=== PATIENT | female | born 1940 | race Asian ===

== ENCOUNTER → 2021-07-13 | Outpatient (CLI) | payer MEDICARE, MEDICAID, SELFPAY ==
[2021-07-13 16:49] LABS: Bacteria 0 SEEN /hpf (None Seen); Mucous, Urine 0 SEEN /hpf (<or=2+); Red Blood Cells-Urine 0 SEEN /hpf (0-5); Squamous Epithelial Cells - UA 0 SEEN /hpf (5-10); White Blood Cells 0 SEEN /hpf (0-5)
[2021-07-13 17:41] LABS: Color, Urine Straw (Yellow); Glucose, Dipstick Normal (Normal); Ketone-Dipstick Negative (Negative); Leukocyte Esterase-Dipstick Negative /ul (Negative); Nitrite-Dipstick Negative (Negative); Occult Blood-Urine 10 /ul (Negative); Protein-Dipstick Negative (Negative); Urine Bilirubin Dipstick Negative (Negative); Urine Clarity Clear (Clear); Urine Urobilinogen Normal (Normal)
[2021-07-13 17:43] LABS: Absolute Lymphocyte Count 1.82 X10^3/uL (0.83-4.51); Absolute Neutrophil Count 4.1 X10^3/uL (2.0-7.7); Basophil# 0.02 X10^3/uL; Basophil% 0.3 % (0-1); Eosinophil# 0.09 X10^3/uL; Eosinophils% 1.4 % (0-5); Hematocrit 36.5 % (37-47); Hemoglobin 11.5 g/dL (12.0-15.0); Lymphocyte # 1.82 X10^3/ul (0.83-4.51); Mean Corp Hgb Conc 31.5 g/dL (32-36); Mean Corpuscular Hgb 29.7 pg (27.0-32.0); Mean Corpuscular Volume 94.3 fL (81-99); Mean Platelet Vol. 10.3 fl (6.2-12.0); Monocyte# 0.48 X10^3/uL; Monocyte% 7.4 % (0-10); NRBC Flagged by Analyzer 0 % (0-5); Neutrophil # 4.08 X10^3/uL (2.7-7.7); Neutrophil % 62.6 % (47-70); Platelet Count 231 K/mm3 (150-450); RBC Distribution Width CV 13.8 % (11.6-14.6); RBC Distribution Width SD 47.4 fl (35.1-43.9); Red Blood Count 3.87 M/mm3 (4.2-5.4); White Blood Count 6.5 K/mm3 (4.4-11.0)
[2021-07-13 18:09] LABS: Hemoglobin A1c 5.7 % (3.8-5.6)
[2021-07-13 18:10] LABS: Creatinine, Urine (random) < 13.00 mg/dL (NO RANGE EST.); Microalbumin,Random Urine 7.7 mg/L (NO RANGE EST.)
[2021-07-13 18:15] LABS: ALB/GLOB Ratio 1.1 RATIO (0.9-2.4); AST(SGOT) 21 U/L (15-37); Alanine Aminotransfer ALT/SGPT 25 U/L (13-56); Albumin, Serum 3.7 g/dL (3.2-5.0); Alkaline Phosphatase 65 U/L (45-117); Anion Gap 6 (5-15); BUN 15 mg/dL (7-18); BUN/Creat Ratio 20.9 RATIO (10-20); CPK Total, Creatine Kinase 104 U/L (26-192); Calcium,Total 9.3 mg/dL (8.5-10.1); Chloride 109 mmol/L (98-107); Cholesterol 186 mg/dL (200); Creatinine, Serum 0.72 mg/dL (0.55-1.02); EST Glomerular Filtration Rate 83 mL/min (>60); Est Glom Filt Rate - Afr Amer 100 mL/min (>60); Ferritin 42 ng/mL (8-252); Globulin 3.5 g/dL (2.2-4.2); Glucose 101 mg/dL (74-106); High Density Lipoprotein 65 mg/dL; Magnesium 2.1 mg/dL (1.6-2.6); Potassium 4.2 mmol/L (3.5-5.1); Protein, Total 7.2 g/dL (6.4-8.2); Sodium Level 140 mmol/L (136-145); Triglycerides 168 mg/dL; Very Low Density Lipoprotein 34 mg/dL (5-40)
== END | disposition home or self-care (01) ==
LOC: MFPLAB 16:46
PROVIDERS: Visit Provider Family Medicine
DX: E11.9 Type 2 diabetes mellitus without complications (principal); R25.2 Cramp and spasm
CPT/HCPCS: 36415; 80053; 80061; 81001; 82043; 82550; 82570; 82728; 83036; 83735; 85025

== ENCOUNTER → 2021-08-10 | Outpatient (CLI) | payer MEDICARE, SELFPAY ==
--- NOTE | 2021-08-10 17:11 | RAD_ITS ---
STUDY: XR Knee 3 Views 08/11/2021 3:22 PM REASON FOR EXAM: Female, 81 years old. PAIN TECHNIQUE: XR Knee 3 Views LEFT COMPARISON: None FINDINGS: Normal visualized distal femur. Normal visualized proximal tibia and fibula. Normal proximal tibiofibular articulation. There is mild degenerative arthrosis of the medial femorotibial compartment. There is mild degenerative arthrosis of the lateral femorotibial compartment. There is mild degenerative arthrosis of the patellofemoral articulation. The soft tissue structures are unremarkable. RAD/Knee 3 Views IMPRESSION: Degenerative arthrosis. Electronically Signed: Juventino Almonte MD at 15:23 EDT ,
--- NOTE | 2021-08-10 17:11 | RAD_ITS ---
STUDY: XR Knee 3 Views 08/11/2021 3:23 PM REASON FOR EXAM: Female, 81 years old. PAIN TECHNIQUE: XR Knee 3 Views RIGHT COMPARISON: None FINDINGS: Normal visualized distal femur. Normal visualized proximal tibia and fibula. Normal proximal tibiofibular articulation. Normal medial femorotibial compartment. Normal lateral femorotibial compartment. Normal patellofemoral articulation. The soft tissue structures are unremarkable. RAD/Knee 3 Views IMPRESSION: There are no acute findings. Electronically Signed: Juventino Almonte MD at 15:23 EDT Reading Location ID and State: [facility] / [place] , Service support ,
--- NOTE | 2021-08-10 17:11 | RAD_ITS ---
STUDY: XR Shoulder Min 2 Views REASON FOR EXAM: Female, 81 years old. PAIN TECHNIQUE: XR Shoulder Min 2 Views RIGHT COMPARISON: None. FINDINGS: Normal glenohumeral articulation. There is degenerative arthrosis of the acromioclavicular joint without inferior osseous spur formation. Normal acromion. Normal humeral head and visualized proximal humerus. The soft tissue structures are unremarkable. Normal visualized pulmonary apex. RAD/Shoulder min 2 Views IMPRESSION: There are no acute findings of the shoulder. Electronically Signed: Juventino Almonte MD at 19:35 EDT Reading Location ID and State: [facility] / [place] , Service support ,
--- NOTE | 2021-08-10 17:15 | RAD_ITS ---
STUDY: XR Shoulder Min 2 Views REASON FOR EXAM: Female, 81 years old. PAIN TECHNIQUE: XR Shoulder Min 2 Views LEFT COMPARISON: None. FINDINGS: Normal glenohumeral articulation. Normal acromioclavicular joint. Normal acromion. Normal humeral head and visualized proximal humerus. The soft tissue structures are unremarkable. Normal visualized pulmonary apex. RAD/Shoulder min 2 Views IMPRESSION: There are no acute findings of the shoulder. Electronically Signed: Juventino Almonte MD at 19:38 EDT ,
== END | disposition home or self-care (01) ==
PROVIDERS: PCP Family Medicine; Referring Provider Family Medicine; Visit Provider Family Medicine
DX: M25.519 Pain in unspecified shoulder (principal); M25.569 Pain in unspecified knee
CPT/HCPCS: 73030; 73562

== ENCOUNTER 2021-09-06 19:28 | Inpatient (IN) | payer MEDICARE, MEDICAID, SELFPAY ==
[2021-09-06 19:29] VITALS: BP 198/79; PULSE 80; RESP 18; TEMP 36.8; O2SAT 100; BMI 29.7
--- NOTE | 2021-09-06 19:34 | EKG12_ITS ---
Test Reason : cp Blood Pressure : / mmHG Vent. Rate : 075 BPM Atrial Rate : 075 BPM P-R Int : 154 ms QRS Dur : 082 ms QT Int : 384 ms P-R-T Axes : 049 -17 130 degrees QTc Int : 428 ms Normal sinus rhythm Moderate voltage criteria for LVH, may be normal variant ( R in aVL , [place] product ) Inferior infarct , age undetermined, cannot be excluded Marked ST abnormality, possible lateral subendocardial injury Abnormal ECG Confirmed by BELINDA IRIZARRY, ALISON ([id number]), publication editor SHELLY DONNELLY ([id number]) on 09/09/2021 9:35:56 AM Referred By: Falguni Confirmed By:ALISON TREVINO MD
--- NOTE | 2021-09-06 19:45 | RAD_ITS ---
STUDY: X-RAY CHEST REASON FOR EXAM: Female, 81 years old. chest pain TECHNIQUE: XR Chest 1 View COMPARISON: Prior comparison studies are not available for review at this time. FINDINGS: There are bilateral pleural effusions. There are bilateral infiltrates. Normal size heart. Normal mediastinum and balwinder. Normal visualized pulmonary arteries. There is atherosclerotic calcification of the aortic arch with tortuosity. There are diffuse degenerative changes of the visualized thoracic spine. There is degenerative osteoarthritis of the bilateral shoulders. There is no demonstrated abnormality of the visualized soft tissue structures of the upper abdomen. RAD/Chest 1 View (Portable) IMPRESSION: There are bilateral pleural effusions. There are bilateral infiltrates. Electronically Signed: Juventino Almonte MD at 20:03 EDT ,
[2021-09-06] MEDS: Aspirin 81 MG TAB.CHEW 324 MG PO (19:58)
[2021-09-06] MEDS: Heparin Injection (Vial) 5,000 UNIT/ML VIAL 4000 UNIT IV (19:59)
[2021-09-06 20:00] LABS: Prothrombin Time (Protime)PT. 12.5 SECONDS (11.7-14.9)
[2021-09-06 20:01] LABS: Partial Thromboplast Time 27.9 Seconds (24.1-36.2)
[2021-09-06 20:05] LABS: Troponin-I HS 6975 pg/mL (3.0-54.0)
--- NOTE | 2021-09-06 20:08 | ED.RN ---
DR WILKES NOTIFIED OF CRITICAL TROPONIN LEVEL- [id number]
[2021-09-06] MEDS: HEPARIN/D5w 25,000 UNITS 25,000 UNITS/250 ML IV.SOLN. 8 UNITS CONT INF (20:17)
[2021-09-06 20:21] VITALS: BP 197/74; PULSE 71; RESP 17; O2SAT 100
--- NOTE | 2021-09-06 20:51 | PCM.HP.STD ---
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 Her chest pain started when patient got up to urinate. Her chest pain radiated to his left where he had numbness. Associated with her symptom was nausea, vomiting, dizziness and shortness of breath. Also she had diaphoresis. Her chest pain was excruciating to the point that she has to sit down. She denies any aggravating ameliorating factors to the pain. On the day of presentation patient went to her PCPs office where EKG was abnormal and high sensitivity troponin was in the 6000. Patient was sent to the emergency department. [facility] Medical History (Updated 09/07/21 @ 06:[address] Bob Arcos MD) Diabetes High cholesterol HTN (hypertension) Medical History no medical history no medical history Home Medications atenolol 50 mg tablet 50 mg PO DAILY 09/06/21 [History Last Taken Unknown] lisinopril 5 mg tablet 5 mg PO DAILY 09/06/21 [History Last Taken Unknown] metformin 500 mg tablet 500 mg PO DAILY 09/06/21 [History Last Taken Unknown] rosuvastatin 5 mg tablet 5 mg PO DAILY 09/06/21 [History Last Taken Unknown] Allergy/AdvReac Type Severity Reaction Status Date / Time ibuprofen Allergy Vomiting Verified 09/06/21 19:32 Family History Other Kidney disease Surgical History History of cataract surgery Social History Smoking Status: Never smoker ROS ROS Narrative Pertinent positives and pertinent negatives as noted in HPI. All other systems were reviewed and are negative. Vital Signs Vital Signs Vital Signs: 09/06/21 19:29 09/06/21 19:33 09/06/21 20:21 Temperature 98.3 F Temperature Source Temporal Pulse Rate 80 71 Respiratory Rate 18 17 Respiratory Effort Normal Non-Labored Blood Pressure 198/79 H 197/74 H Blood Pressure Mean 118 115 Pulse Ox 100 100 Oxygen Delivery Method Room Air Room Air Weight Weight: 64.6 kg Body Mass Index (BMI) 29.7 Physical Exam Narrative Physical exam: General: Well-nourished, well-developed. Head: Normocephalic, atraumatic, no tenderness Eyes: Vision is grossly intact. EOMI ENT, no trauma, moist mucous membranes, no rhinorrhea Neck: Nontender, full range of motion, no spinal tenderness CVS: Regular rate and rhythm. S1-S2 present. No murmur, gallop or rub. Respiratory : clear to auscultation bilaterally, chest wall nontender, no wheezing Abdomen: Soft, nontender, nondistended, normal bowel sounds, no masses : Deferred Back: Nontender, no CVA tenderness, no midline spinal tenderness, deformities, step-offs Extremities: Nontender full range of motion, no trauma Skin: Normal color, no trauma, abrasions Neuro: Alert, oriented, cranial nerves II through XII grossly intact. Psychiatry: Normal mood. Normal affect. Not depressed. Not anxious. Results Lab / Micro Data Result Diagrams: 09/07/21 04:29 09/07/21 04:29 Labs: Laboratory Results - last 24 hr 09/06/21 19:32: PT 12.5, INR 1.0, APTT 27.9 09/06/21 19:32: Troponin I High Sens 6975 H* Radiology Impression Chest X-Ray 09/06/21 19:45 IMPRESSION: There are bilateral pleural effusions. There are bilateral infiltrates. Electronically Signed: Juventino Almonte MD at 20:03 EDT Reading Location ID and State: [facility] / [place] , Service support , Assessment & Plan Assessment/Plan (1) Non-ST elevation [place] (NSTEMI): (2) Hypertensive urgency: (3) Diabetes: PLAN: Plan Non-ST elevation KS Place on a monitored bed at progressive care unit Outpatient EKG was visualized and independently interpreted. T wave inversion in multiple leads. EKG on presentation was visualized and independently interpreted. EKG with T wave inversions and ST depressions in multiple leads. High sensitivity troponin outpatient was 6929. Repeat 6975. Trend. Actual CXR image was independently visualized. No acute cardiopulmonary process was noted. Cardiology consult. ASA 81 mg p.o. daily ordered We will check lipid panel. Cardiology consult Hypertensive urgency Her blood pressure was severely elevated at the emergency department. Home atenolol and lisinopril continued.. Labetalol ordered. Trend blood pressure and adjust blood pressure medication especially. Diabetes mellitus Blood glucose slightly low at 72 on presentation. Reportedly patient had no eating. Accu-Chek every 4 hours ordered. Hold home metformin. Diabetic diet. N.p.o. after midnight. With blood glucose still soft patient was started on D5 half-normal saline Anemia Chronic Trend CBC. DVT prophylaxis not indicated since patient still on heparin drip Charges/Coding Visit Charges Inpatient E&M: 03216 Init Hosp L3
[2021-09-06 21:11] VITALS: BP 190/105
--- NOTE | 2021-09-06 21:16 | ED.VIS.CHEST ---
HPI History of Present Illness Chief Complaint: Chest Pain Informant: patient and spouse/S.O. Onset/Context/Timing Onset: Today Narrative Narrative: Presents after referred by PCP with outpatient work-up positive for NSTEMI. History of hypertension, diabetes, hyperlipidemia awakened 430 using the restroom she developed sudden chest pressure left arm numbness and diaphoresis. Symptoms lasted for half hour. Has not returned. No cardiac history. No history of heart cath. EKG presented by PCP with T wave inversions lateral extreme lateral leads with no old for comparison. Troponin returned over 6900. She remained symptom-free on arrival. Denies any tobacco history. Denies any PE risk factors. States denies any cough symptoms prior was doing well. Prior Similar Symptoms: No CVD Risk Factors: Positive for Hypertension, Diabetes and Hypercholesterolemia [facility] Medical History Diabetes High cholesterol HTN (hypertension) Home Medications atenolol 50 mg tablet 50 mg PO DAILY 09/06/21 [History Last Taken Unknown] lisinopril 5 mg tablet 5 mg PO DAILY 09/06/21 [History Last Taken Unknown] metformin 500 mg tablet 500 mg PO DAILY 09/06/21 [History Last Taken Unknown] rosuvastatin 5 mg tablet 5 mg PO DAILY 09/06/21 [History Last Taken Unknown] Allergy/AdvReac Type Severity Reaction Status Date / Time ibuprofen Allergy Vomiting Verified 09/06/21 19:32 Family History Other Kidney disease Surgical History History of cataract surgery Social History Smoking Status: Never smoker ROS ROS ED Constitutional Constitutional ED: Denies chills, fever(s) or sweats Eyes Eyes: Denies change in vision ENT ENT ED: Denies dysphagia or sore throat Cardiovascular Cardiovascular: Reports chest pain; Denies leg edema, palpitations or racing heartbeat Respiratory/Chest Respiratory/Chest: Denies cough, dyspnea or dyspnea on exertion Gastrointestinal Gastrointestinal: Denies abdominal pain, diarrhea, nausea or vomiting Genitourinary Genitourinary ED: Denies dysuria, hematuria or urinary frequency Musculoskeletal Musculoskeletal: Denies back pain, extremity pain or neck pain Integumentary Denies rash or wounds Neurologic Neurologic: Denies headache(s), paresthesias or weakness EXAM Physical Exam Const Vital Signs: 09/06/21 19:29 09/06/21 19:33 09/06/21 20:21 Temperature 98.3 F Temperature Source Temporal Pulse Rate 80 71 Respiratory Rate 18 17 Respiratory Effort Normal Non-Labored Blood Pressure 198/79 H 197/74 H Blood Pressure Mean 118 115 Pulse Ox 100 100 Oxygen Delivery Method Room Air Room Air Positive well nourished and well developed General Appearance ED: well developed and NAD HEENT Reports moist mucous membranes normocephalic and atraumatic Eyes PERRL, EOMs intact bilaterally and conjunctivae normal General Eye ED: Yes normal appearance of both eyes Neck no lymphadenopathy and supple General: Negative for tenderness Chest Wall Chest: Negative for tenderness Resp normal respiratory effort and normal air movement Effort and Inspection: symmetric chest movement; Negative for respiratory distress Cardio regular rate, regular rhythm and no murmurs Peripheral Pulses: pulses 2+ throughout GI normal to inspection, nondistended, normoactive bowel sounds and non-tender Palpation: Negative for guarding or rebound tenderness present Back/Spine no CVA tenderness and no thoracic nor lumbar tenderness Extremity normal to inspection General Extremety ED: Negative for edema or tenderness General Extremity: Negative for edema Neuro oriented x3 and no sensory deficits noted Sensorium / Orientation: awake and alert Skin no rashes or lesions noted and no wounds Heart Score History: Moderately Suspicious ECG: Nonspecific Repolarization Age: >/= 65 years Risk Factors: >/= 3 Risk Factors or History of CAD Troponin: >/=3 x Normal Limit Score: 8 MDM MDM MDM Narrative Medical decision making narrative: Patient nontoxic, currently asymptomatic. NSTEMI from labs. Repeat EKG noted normalization of T waves in V4 V5. There is ST depressions on extreme lateral leads with no elevations. Rechecked reported 6975. I spoke with on-call electric refrigerator servicer Dr. Phillip, recommended aspirin along with heparin drip. We will hold on Plavix or Brilinta at this time due to patient's age for potential multivessel disease. Chest x-ray reviewed by myself read by radiology for insertion bilateral pleural effusions. Also reported bilateral infiltrates however patient denies any cough symptoms for concerns of any clinical pneumonia. Patient family updated. She will be kept n.p.o. for discussion for cardiac cath tomorrow. I spoke with hospitalist, Dr. Arcos for admission to PCU. Lab Data Attestation: I reviewed the patient's lab results. Labs: Laboratory Results - last 24 hr 09/06/21 09/06/21 19:32 19:32 PT 12.5 INR 1.0 APTT 27.9 Troponin I High Sens 6975 H* Radiography Diagnostic Testing: Clinical Impression(s) from Imaging Studies Chest X-Ray 09/06/21 19:45 IMPRESSION: There are bilateral pleural effusions. There are bilateral infiltrates. Electronically Signed: Juventino Almonte MD at 20:03 EDT , EKG Initial EKG: Attestation: I personally reviewed and interpreted this EKG as follows: Comments: Sinus rate of 78, T wave inversion V6, 1, aVL. There is ST depressions 1 and aVL there is no elevations. Early repull in leads III nonspecific. Critical Care Time Critical Care Time: Yes Critical care time (excluding procedures): 30-74 minutes, Discussing w/Patient &/or Family/Supercharger Mechanic, Discussing w/Consultants, Arranging Admission or Transfer, Performing Direct Patient Care at Bedside and - (31 minutes) Discharge Plan Dx/Rx/DC Orders Clinical Impression: Non-ST elevation [place] (NSTEMI), Chest pain Disposition Disposition: Acute Care [facility] Discharge Date/Time: 09/06/21 21:25
[2021-09-06 21:23] VITALS: BP 190/105; PULSE 71; RESP 17; TEMP 36.8; O2SAT 100
[2021-09-06 21:32] VITALS: BP 188/81; PULSE 80; RESP 18; TEMP 36.8; O2SAT 99; BMI 28.8
--- NOTE | 2021-09-06 22:06 | EKG12_ITS ---
Test Reason : Blood Pressure : / mmHG Vent. Rate : 083 BPM Atrial Rate : 083 BPM P-R Int : 158 ms QRS Dur : 084 ms QT Int : 376 ms P-R-T Axes : 050 -14 135 degrees QTc Int : 441 ms Normal sinus rhythm Left ventricular hypertrophy with repolarization abnormality ( R in aVL , [place] product ) Inferior infarct , age undetermined Poor R wave progression Abnormal ECG Confirmed by BELINDA IRIZARRY, ALISON ([id number]), research editor SHELLY DONNELLY ([id number]) on 09/08/2021 9:51:23 AM Referred By: Confirmed By:ALISON TREVINO MD
[2021-09-06] MEDS: HEPARIN/D5w 25,000 UNITS 25,000 UNITS/250 ML IV.SOLN. 10 UNITS CONT INF (22:27)
[2021-09-06 23:06] LABS: Troponin-I HS 6654 pg/mL (3.0-54.0)
[2021-09-06] MEDS: 0.9% Saline Lock 10 ML Syringe IV (23:15)
[2021-09-06] MEDS: Atorvastatin Calcium 40 MG Tablet PO (23:15)
[2021-09-06] MEDS: Labetalol (Prefilled) 20 MG/4 ML 10 MG IV (23:15)
[2021-09-06 23:30] VITALS: PULSE 80
[2021-09-06 23:40] LABS: Bedside Glucose 101 mg/dL (74-106)
[2021-09-07] VITALS (29 sets, daily range): BP systolic 115–183; BP diastolic 45–75; PULSE 57–79; RESP 12–22; TEMP 36.2–36.9; O2SAT 96–100; BMI 28.8
[2021-09-07 02:39] LABS: Troponin-I HS 5718 pg/mL (3.0-54.0)
[2021-09-07 04:21] LABS: Bedside Glucose 84 mg/dL (74-106)
[2021-09-07 04:48] LABS: Absolute Lymphocyte Count 2.49 X10^3/uL (0.83-4.51); Absolute Neutrophil Count 3.1 X10^3/uL (2.0-7.7); Basophil# 0.02 X10^3/uL; Basophil% 0.3 % (0-1); Eosinophil# 0.09 X10^3/uL; Eosinophils% 1.5 % (0-5); Hematocrit 32.6 % (37-47); Hemoglobin 10.6 g/dL (12.0-15.0); Lymphocyte # 2.49 X10^3/ul (0.83-4.51); Lymphocyte % 40.4 % (19-41); Mean Corp Hgb Conc 32.5 g/dL (32-36); Mean Corpuscular Hgb 30.2 pg (27.0-32.0); Mean Corpuscular Volume 92.9 fL (81-99); Mean Platelet Vol. 10.3 fl (6.2-12.0); Monocyte# 0.46 X10^3/uL; Monocyte% 7.5 % (0-10); NRBC Flagged by Analyzer 0 % (0-5); Neutrophil # 3.09 X10^3/uL (2.7-7.7); Neutrophil % 50.1 % (47-70); Platelet Count 188 K/mm3 (150-450); RBC Distribution Width CV 13.2 % (11.6-14.6); RBC Distribution Width SD 44.7 fl (35.1-43.9); Red Blood Count 3.51 M/mm3 (4.2-5.4); White Blood Count 6.2 K/mm3 (4.4-11.0)
[2021-09-07 05:07] LABS: Partial Thromboplast Time 186.5 Seconds (24.1-36.2)
[2021-09-07] MEDS: 0.9% Saline Lock 10 ML Syringe IV ×2 (05:16→21:09)
[2021-09-07] MEDS: Dext 5%-0.45% NS 1,000 ML 75 ML IV (05:16)
[2021-09-07 05:20] LABS: Anion Gap 6 (5-15); BUN 12 mg/dL (7-18); BUN/Creat Ratio 16.5 RATIO (10-20); Calcium,Total 8.8 mg/dL (8.5-10.1); Chloride 111 mmol/L (98-107); Cholesterol 123 mg/dL (200); Creatinine, Serum 0.73 mg/dL (0.55-1.02); EST Glomerular Filtration Rate 81 mL/min (>60); Est Glom Filt Rate - Afr Amer 98 mL/min (>60); Estimated Creatinine Clearance 42.12 ml/min; Glucose 94 mg/dL (74-106); High Density Lipoprotein 70 mg/dL; Potassium 3.6 mmol/L (3.5-5.1); Sodium Level 142 mmol/L (136-145); Triglycerides 54 mg/dL; Very Low Density Lipoprotein 11 mg/dL (5-40)
--- NOTE | 2021-09-07 07:52 | CON.PCM.CA_ITS ---
Assessment & Plan Assessment/Plan (1) Non-ST elevation WI (NSTEMI): PLAN: The patient presents with an acute non-ST segment elevation WI. At the moment she appears without ongoing acute symptoms. Her cardiac enzymes were positive. Her ECG did demonstrate dynamic T wave changes especially in the lateral distribution. She has been recommended for continued monitoring, medical therapy, and further evaluation with diagnostic cardiac catheterization. The cardiac catheterization procedure and risk were discussed with the patient. She was agreeable to this approach. (2) High cholesterol: PLAN: She will need to continue risk factor evaluation care as deemed appropriate. (3) HTN (hypertension): PLAN: Her blood pressure will need to be followed with adjustment of her medications as deemed appropriate. (4) Diabetes: PLAN: She will continue evaluation care per internal medicine. Addt'l Comments The patient's case has been discussed and reviewed with the patient and previously with Dr. Agosto from the [facility] emergency department staff. This note was generated using a voice recognition system and there may be incorrect words, spelling or punctuation that were not noted when reviewing the office note prior to saving. HPI Consult Data Date of Consult: 09/07/21 HPI Narrative HPI Narrative: JORDIN SPANN, is a 81 year old female who presents cardiovascular consultation based upon concerns of an acute non-ST segment elevation WI superimposed upon a history of hyperlipidemia, hypertension, and diabetes mellitus. To the best of her knowledge she has no previously defined cardiac disease. She notes yesterday morning while in the bathroom she did not feel well. She appears to describe chest discomfort over her left precordium radiating to her left upper extremity with associated symptoms of nausea and diaphoresis. She states she sat on the floor for approximately 45 minutes before she felt she was able to get up. She then rested in bed for approximately an hour. She notes later on she had recurrent symptoms. During this time she also felt somewhat dizzy on and off. She presented to her primary care physician. She had laboratory studies performed which were pending at the time. An ECG was performed that demonstrated findings compatible with sinus rhythm with left atrial enlargement with left ventricular hypertrophy with ST and T wave changes potentially compatible with repolarization as well as myocardial ischemia in the lateral distribution. Subsequently her high-sensitivity troponin I level was reported as positive. She was then instructed to report to the emergency department. There repeat cardiac enzyme levels were positive. A repeat ECG demonstrated similar type findings with exception of the previous lateral T wave changes appearing to have normalized. She was subsequently placed in the PCU for further evaluation and care. She states she has been resting comfortably. She has denied recurrent discomfort. She has had follow-up cardiac enzymes which of decreased. She had a follow-up ECG that demonstrated similar type findings to her emergency department ECG. She has been treated with medical therapy with aspirin and IV heparin. She has been referred for cardiovascular consultation for consideration for diagnostic cardiac catheterization. [facility] Medical History (Updated 09/07/21 @ 07:[address] Dm Phillip MD) Diabetes High cholesterol HTN (hypertension) Medical History no medical history Home Medications atenolol 50 mg tablet 50 mg PO DAILY 09/06/21 [History Last Taken Unknown] lisinopril 5 mg tablet 5 mg PO DAILY 09/06/21 [History Last Taken Unknown] metformin 500 mg tablet 500 mg PO DAILY 09/06/21 [History Last Taken Unknown] rosuvastatin 5 mg tablet 5 mg PO DAILY 09/06/21 [History Last Taken Unknown] Allergy/AdvReac Type Severity Reaction Status Date / Time ibuprofen Allergy Vomiting Verified 09/06/21 19:32 Family History Other Kidney disease Surgical History History of cataract surgery Social History Smoking Status: Never smoker ROS Constitutional Constitutional: Reports as per HPI Eyes Eyes: Reports as per HPI ENT HEENT: Reports as per HPI Cardiovascular Cardiovascular: Reports chest pain, chest pain at rest, diaphoresis, dizziness, dyspnea and nausea Respiratory/Chest Respiratory/Chest: Reports dyspnea Gastrointestinal Gastrointestinal: Reports nausea Genitourinary Genitourinary: Reports as per HPI Musculoskeletal Musculoskeletal: Reports as per HPI Integumentary Integumentary: Reports as per HPI Neurologic Neurologic: Reports as per HPI Psychiatric Psychiatric: Reports as per HPI Physical Exam Const alert, oriented x3 and no apparent distress HEENT normocephalic, head/scalp atraumatic and hearing grossly normal bilaterally Eyes PERRL, EOMs intact bilaterally and conjunctivae normal Neck full ROM, supple and no JVD Carotids: normal carotid upstroke Resp normal respiratory effort and clear to auscultation bilaterally Cardio regular rate, regular rhythm, S1 normal heart sound and S2 normal heart sound GI normal to inspection, nondistended, normoactive bowel sounds Extremity no pedal edema Skin no rashes or lesions noted Psych mental status grossly normal Risk Stratification Risk Stratification Applicable: Yes Age >/= 65: Yes >/= 3 CAD Risk Factors (HTN, HLD, DM, family hx of CAD, or current smoker): Yes Aspirin Use in the Past 7 Days: No Severe Angina (>/= episodes in 24 hours): Yes EKG ST Changes >/= 0.5mm: Yes Positive Cardiac Marker: Yes JOSE Risk Stratification Score: 5 JOSE % Risk: 25% Risk Procedure Criteria Type of Procedure Procedure Type: Elective Elective Risks - COVID COVID Risk Discussion: The surgeon/proceduralist and patient have discussed in detail the risk of exposure to and/or potential harm posed by the COVID-19 virus with having a surgery/procedure at this time versus the risk of delaying the surgery/procedure. It is not possible to know either the risk of delaying the surgery or procedure or chance of getting an infection with perfect accuracy, but a joint decision was made between the patient and the surgeon/proceduralist to proceed at this time with the scheduled surgery/procedure as indicated on the consent form. Objective Data Vital Signs: Vital Signs Temp Pulse Resp BP Pulse Ox O2 Del Method 97.5 F L 75 18 150/51 H 97 Room Air 09/07/21 03:40 09/07/21 07:00 09/07/21 03:40 09/07/21 03:40 09/07/21 06:52 09/07/21 06:52 Oxygen Delivery Method Room Air Weight: 138 lb 0.15 oz Body Mass Index (BMI) 28.8 Intake & Output: Intake and Output for Last 24 Hours 09/05/21 09/06/21 09/07/21 23:59 23:59 23:59 Intake Total 17.47 / 17.47 Balance 17.47 / 17.47 Lab / Micro Data Result Diagrams: 09/07/21 04:29 09/07/21 04:29 Labs: Laboratory Results - last 24 hr 09/06/21 19:32: PT 12.5, INR 1.0, APTT 27.9 09/06/21 19:32: Troponin I High Sens 6975 H* 09/06/21 22:32: Troponin I High Sens 6654 H* 09/06/21 23:12: POC Glucose 101 09/07/21 01:42: Troponin I High Sens 5718 H* 09/07/21 03:51: POC Glucose 84 09/07/21 04:29: Sodium 142, Potassium 3.6, Chloride 111 H, Carbon Dioxide 25.0, Anion Gap 6, BUN 12, Creatinine 0.73, Estim Creat Clear Calc 42.12, Est GFR (MDRD) Af Amer 98, Est GFR (MDRD) Non-Af 81, BUN/Creatinine Ratio 16.5, Glucose 94, Calcium 8.8, Triglycerides 54, Cholesterol 123, LDL Cholesterol 42, VLDL Cholesterol 11, HDL Cholesterol 70 09/07/21 04:29: WBC 6.2, RBC 3.51 L, Hgb 10.6 L, Hct 32.6 L, MCV 92.9, MCH 30.2, MCHC 32.5, RDW Std Deviation 44.7 H, RDW Coeff of Stacy 13.2, Plt Count 188, MPV 1 0.3, Immature Gran % (Auto) 0.200, Neut % (Auto) 50.1, Lymph % (Auto) 40.4, Loíza % (Auto) 7.5, Eos % (Auto) 1.5, Baso % (Auto) 0.3, Absolute Neuts (auto) 3.1, Absolute Lymphs (auto) 2.49, Nucleated RBC % 0 09/07/21 04:29: APTT 186.5 H* Cardiology Labs/Tests 09/06/21 19:32: PT 12.5, INR 1.0, APTT 27.9 09/07/21 04:29: Sodium 142, Potassium 3.6, Chloride 111 H, Carbon Dioxide 25.0, Anion Gap 6, BUN 12, Creatinine 0.73, Est GFR (MDRD) Af Amer 98, Est GFR (MDRD) Non-Af 81, BUN/Creatinine Ratio 16.5, Glucose 94, Calcium 8.8, Triglycerides 54, Cholesterol 123, LDL Cholesterol 42, VLDL Cholesterol 11, HDL Cholesterol 70 09/07/21 04:29: WBC 6.2, RBC 3.51 L, Hgb 10.6 L, Hct 32.6 L, MCV 92.9, MCH 30.2, MCHC 32.5, Plt Count 188, MPV 10.3, Immature Gran % (Auto) 0.200, Neut % (Auto) 50.1, Lymph % (Auto) 40.4, Loíza % (Auto) 7.5, Eos % (Auto) 1.5, Baso % (Auto) 0.3, Absolute Neuts (auto) 3.1, Nucleated RBC % 0 09/07/21 04:29: APTT 186.5 H* Rhythm: Sinus rhythm EKG: As noted above Radiography Diagnostic Testing: Radiology Impression Chest X-Ray 09/06/21 19:45 IMPRESSION: There are bilateral pleural effusions. There are bilateral infiltrates. Electronically Signed: Juventino Almonte MD at 20:03 EDT ,
[2021-09-07] MEDS: Lisinopril 5 MG Tablet PO (08:26)
[2021-09-07] MEDS: Atenolol 50 MG Tablet PO (08:27)
[2021-09-07] MEDS: Aspirin E.C. 81 MG Tablet PO (08:27)
--- NOTE | 2021-09-07 08:33 | NURSING ---
Report called to [employer] Estate [employer].
[2021-09-07 08:55] LABS: Bedside Glucose 98 mg/dL (74-106)
--- NOTE | 2021-09-07 09:15 | CASEMGMT ---
According to the [employer] website, the following are in-network facilities: [facility], [facility], [facility], [facility], [facility], and . Torres HERNANDEZ CM
--- NOTE | 2021-09-07 10:35 | ECHOCS_ITS ---
Reason For Study: S/P WI Procedure This was a 2D Doppler, Color Flow transthoracic echocardiogram. The study was technically difficult. Contrast injection was performed. Exam performed portable in ICU/CCU. Left Ventricle Normal LV size. Moderate concentric left ventricular hypertrophy. Left ventricular systolic function is normal. The estimated ejection fraction is 65 %. Diastolic function is indeterminate. No regional wall motion abnormalities noted. Right Ventricle Normal RV size. Normal systolic function. Atria Normal left atrium. Normal right atrium. No doppler evidence for ASD. Mitral Valve There is no mitral annular calcification. Normal mitral valve. Trivial mitral valve insufficiency. Tricuspid Valve Normal tricuspid valve. Trivial tricuspid valve insufficiency. Right ventricular systolic pressure estimated to be 21 mmHg. Aortic Valve Trisinus/trileaflet aortic valve. Normal aortic valve. Mild (1+) aortic valve insufficiency. Pulmonic Valve The pulmonic valve is not well visualized. Great Vessels Normal sized aortic root. Pericardium/Pleural No pericardial effusion. Medication Diluted definity 2ml given slow IV push to enhance endocardial definition. MMode/2D Measurements & Calculations LVIDd: 3.4 cm IVSd: 1.5 cm Ao root diam: 2.8 cm LVIDs: 2.4 cm LVPWd: 1.3 cm RVDd: 3.0 cm FS: 30.6 % LAV(MOD-bp): 37.6 ml LVAd ap4: 19.0 cm2 SV(MOD-sp4): 31.2 ml LAV(MOD-bp) Indexed: 24.2 ml/m2 LVLd ap4: 6.4 cm LAV(MOD-sp2): 40.7 ml EDV(MOD-sp4): 45.2 ml LAV(MOD-sp4): 32.2 ml EDV(sp4-el): 48.1 ml LVAs ap4: 9.6 cm2 LVLs ap4: 5.3 cm ESV(MOD-sp4): 14.0 ml ESV(sp4-el): 14.6 ml EF(MOD-sp4): 69.1 % EF(sp4-el): 69.6 % SV(sp4-el): 33.5 ml LA A4 area: 14.7 cm2 LA dimension(2D): 3.1 cm RA A4 area: 13.0 cm2 Time Measurements MV dec time: 0.19 sec Doppler Measurements & Calculations MV E max ja: 67.3 cm/sec Lat Peak E' Ja: 3.4 cm/sec Med Peak E' Ja: 4.4 cm/sec MV A max ja: 80.5 cm/sec E/E' lat: 19.6 E/E' med: 15.3 MV E/A: 0.84 Ao V2 max: 133.9 cm/sec AI max ja: 464.5 cm/sec LV V1 max: 100.0 cm/sec Ao max P.2 mmHg AI max P.3 mmHg LV V1 max P.0 mmHg AI dec slope: 196.2 cm/sec2 AI P1/2t: 693.4 msec PA V2 max: 102.1 cm/sec TR max ja: 211.6 cm/sec TR max P.9 mmHg ECHO/Echo Complete W/ Contrast Interpretation Summary The study was technically difficult. Contrast injection was performed. Left ventricular systolic function is normal. The estimated ejection fraction is 65 %. Moderate concentric left ventricular hypertrophy. Trivial mitral valve insufficiency. Trivial tricuspid valve insufficiency. Mild (1+) aortic valve insufficiency. Right ventricular systolic pressure estimated to be 21 mmHg. Diastolic function is indeterminate. Ordering Physician: Dm Phillip Referring Physician: PRAKASH REEVES Performed By: Trini Rodgers RDCS
--- NOTE | 2021-09-07 10:36 | CL.D_ITS ---
Patient Name: JORDIN SPANN Study Date: 09/07/2021 Performing: Dm Phillip MD Ht: 57.87 inches 147 cm : 1940 Wt: 138.89 lbs 63 kg Age: 81 Gender: female BSA: 1.56 PROCEDURE(S) PERFORMED DC01-(79046)LHC/COR/LV IC12-(06552/[id number])[facility] W/WO PTCA, SINGLE CORONARY ARTERY CLINICAL PROFILE AND INDICATIONS Indications: ACS <= 24 hrs Heart Failure: None Stress/Imaging Stress/Image Study Performed: No Angina Classification Anginal Classification w/in 2 Weeks: CCS IV CAD Presentations: Non-STEMI. CONCLUSIONS Normal Left Ventricular End Diastolic Pressure Normal LV size, wall motion,and systolic function LVEF: by LV gram 65 % [place] Multivessel CAD RECOMMENDATIONS Risk factor modification Medical therapy Referred for immediate PCI Consider: stage PCI of the RCA system DESCRIPTION OF PROCEDURE The patient arrived to the procedure lab. The risks and benefits of the procedure as well as a full d escription of our services here and current unavailability of surgical backup were fully explained to the patient and/or their significant other prior to the catheterization. The Timeout was completed, verifying the correct patient and procedure. The patient's procedural site was prepped and draped in the usual fashion. Local anesthetic was given subcutaneously to right radial region with Lidocaine 2% . Local anesthetic was given subcutaneously to right groin region with Lidocaine 2%. Using a modified Seldinger technique, arterial access was obtained via the right radial artery, a 6Fr sheath was inse rted., arterial access was obtained via the right femoral artery, a 6Fr sheath was inserted. Right C oronary Artery selective angiography was then performed in multiple views using a 5 Fr. 4.0 Helen cat heter. Left Coronary Artery selective angiography was performed in multiple views using a 5 Fr. 4.0 Helen catheter. Left Ventriculography was performed in RIVAS projection using a 5 Fr. Pigtail catheter. LV to AO pullback pressures were then recorded.Contrast was injected through the sheath an d the Right Iliac and Femoral artery were assessed for possible closure device.The radial arterial sh eath was pulled and a TR Band was applied for hemostasis. 10cc air inserted.. The femoral arterial sh eath was pulled and a Perclose closure device was deployed for hemostasis CORONARY ANGIOGRAPHY DOMINANCE: Right Dominant LEFT HEART ASSESSMENT Left Ventricular Ejection Fraction: by LV Gram 65 % Normal LV wall motion Normal Left Ventricular End Diastolic Pressure LVEDP: 10 mmHg LEFT MAIN: Angiographically normal LEFT ANTERIOR DESCENDING ARTERY: MID LAD: 99 % / subtotally occluded with the remainder of the vessel filling slowly and late DIAGONAL 1: Proximal - very small caliber side branch with ostial subtotal occlusion CIRCUMFLEX ARTERY: Mild luminal irregularities OM 1: Proximal - Mild luminal irregularities OM 2: Proximal - 25 % Stenosis RIGHT CORONARY ARTERY: MID RCA: diffuse: irregular: 75 % Stenosis DISTAL RCA: Mild luminal irregularities COLLATERAL FLOW: Collateral flow from Right to Left COMPLICATIONS No Complications PROCEDURE MEDICATIONS Fentanyl 50 mcg IV Versed 1 mg IV Oxygen: 2 L/min via nasal cannula Brilinta 180 mg PO @ 09/07/2021 09:36:43 Heparin given IA 09/07/2021 09:12:46 Heparin 6000 unit(s) IV 09/07/2021 10:03:14 Nitro 200 mcg IA 09/07/2021 09:42:14 Nitro 200 mcg IA 09/07/2021 09:42:14 Nitro 200 mcg IC 09/07/2021 10:18:15 Verapamil 2.5mg, Ntg 100mcgs, 3000 units of Heparin given IA 09/07/2021 09:12:46 IV Bolus: .9 NaCl 500 ml total 09/07/2021 10:28:41 SUMMARY OF HEMODYNAMIC DATA Time AIR REST ECG 09:08:01 AO 109/51 (76) SA 09:15:04 LV 173/-9, 20 09:23:20 LV 162/-6, 10 09:23:26 LV 178/-10, 20 09:24:38 LV 175/-12, 15 09:24:44 LVp 168/-11, 11 09:24:56 AOp 177/59 (106) 09:25:01 Signed By Dm Phillip MD On 09/07/2021 10:35:23 AM Dm Phillip MD
--- NOTE | 2021-09-07 11:10 | CASEMGMT ---
MARY FRIEND assessment: Face to Face with patient for initial transition planning/care coordination assessment. MARY FRIEND introduced self and role at [facility], pt voices understanding and consents to assessment. Pt is lying in bed in no distress on room air. Pt does c/o pain in right arm and Gerri HERNANDEZ is aware. Pt is A/Ox4 and family is at bedside during assessment and answers all questions for pt.? Care providers, pharmacy,?and demographics verified/updated. ? Presentation: Chest pain this morning with near syncopal episode, diaphoresis and vomiting x1 Admitting dx: NSTEMI PCP: Emily Specialists: None Preferred Pharmacy: [facility] Insurance: [employer] Prescription Benefit:?[employer] Living Will/HPOA: Pt does not have LW/HPOA and states no need for AD info. LNOK: Amadeo Ruiz, son; Michelle Cheatham, daughter Living Arrangements: Pt lives with son and svjcayml-[id number] on main level of 2 story home and states no concerns at home. Pt is independent with ADL's. Transportation: Pt's family drives and states no transportation concerns. DME/HHC: Pt has no current DME or need for any further DME. Pt has no hx of HHC or SNF. Pt/family state no concerns with pt going home at time of discharge. Pt is retired. Pt states does not smoke cigarettes or drink ETOH. Pt/family state no further concerns/needs. CM to follow for any further discharge planning/needs. Advised pt to ask for CM if any further questions/concerns/needs arise, voices understanding. Pt Goal: Home Plan: Home w/ family [place] MARY FRIEND
--- NOTE | 2021-09-07 11:30 | EKG12_ITS ---
Test Reason : syncope Blood Pressure : / mmHG Vent. Rate : 058 BPM Atrial Rate : 058 BPM P-R Int : 154 ms QRS Dur : 078 ms QT Int : 468 ms P-R-T Axes : 058 -09 120 degrees QTc Int : 459 ms Sinus bradycardia Left ventricular hypertrophy with repolarization abnormality ( R in aVL , [place] product ) Inferior infarct , age undetermined , cannot be excluded T-wave abnormltiy: consider myocardial ischemia: lateral Abnormal ECG Confirmed by BELINDA IRIZARRY, ALISON ([id number]), supervising editor news reel SHELLY DONNELLY ([id number]) on 09/11/2021 10:37:24 AM Referred By: Amy Confirmed By:ALISON TREVINO MD
--- NOTE | 2021-09-07 11:33 | PCI.CARDCATH ---
PCI Cardiac Cath Report PCI Report: 1. Successful PCI of subtotal 99% mid LAD stenosis with JOSE I flow, with predilatation followed by placement of a drug-eluting stent 2.5 x 26 mm [facility] With reduction of stenosis to 0% and achievement of JOSE-3 flow 2. Successful placement of TR band to right radial artery arteriotomy site 3. Right common femoral artery angiography followed by placement of Perclose to close the right common femoral artery arteriotomy site Procedure in detail; 81-year-old female who presented with symptoms of chest pain with a clinical diagnosis of non-ST elevation AR Patient underwent cardiac catheterization by primary network systems administrator Dr. Phillip Findings revealed normal left ventricular end-diastolic pressure Normal LV size wall motion and systolic function with ejection fraction of around 65% Patient has, [place] multivessel CAD I reviewed the cardiac catheterization findings which revealed the following Left main normal angiographically bifurcating into LAD and the left circumflex Left anterior descending artery/LAD mid 99% subtotally occluded with remainder of the vessel filling slowly and late D1 proximal very small caliber size vessel with ostial subtotal occlusion Circumflex artery had mild luminal irregularities with proximal OM1 had mild luminal irregularity and proximal OM2 had around 25% eccentric stenosis Right coronary artery dominant with diffuse irregular 75% stenosis small to moderate size vessel The distal RCA had mild luminal irregularity Collateralization noted from the right RPDA to the distal left anterior descending artery. Consent; Risk and benefit of the procedure explained in detail to the patient she elected to proceed informed consent obtained Interventional equipment and plan; 1. Patient had severe spasm involving the right radial artery with difficulty of passing the guide catheter using multiple nitroglycerin and verapamil With hematoma noted in the right arm using a pressure band and will proceed with access from the right common femoral artery under fluoroscopic guidance with the placement of 6 Afghan sheath with no complication 1. 6 Afghan 3.5 EBU guide catheter 2. 0.014 run-through extra floppy 180 cm straight guide t wire 3. 0.035, 260 cm J exchange wire 4. 2 x 15 mm emerge MR balloon 5. 2.5 x 26 mm drug-eluting stent/[employer] MR 6. Placement of Perclose to close the right common femoral artery arteriotomy site. Medication used in the Asw/Asuw Tactical Air Controller 1. Heparin 6000 units was used intravenous 2. Brilinta 180 mg IV was given 3. Aspirin 4. Nitroglycerin and verapamil was used through the right radial artery sheath due to spasm of the radial artery 5. IC nitroglycerin 200 mcg Procedure in detail; Under fluoroscopic guidance we will proceed with guide catheter advanced ascending aorta cannulated the left main without difficulty, angiographic view obtained and then will proceed with run-through guidewire across the lesion in the LAD and then predilated followed by placement of a drug-eluting stent This is followed by angiographic view of the right common femoral artery and placement of Perclose to close the right common femoral artery arteriotomy site with no complication in the Asw/Asuw Tactical Air Controller ACT level acceptable. Conclusion recommendations; 1. Patient to continue on dual antiplatelet therapy with Brilinta and aspirin for 1 year and aspirin indefinitely 2. Patient is scheduled for phase 1 cardiac rehab program at [facility] 3. Patient will follow up with the primary network systems administrator Dr. Phillip for continuation of cardiac care plan 4. Patient can be scheduled for elective PCI of mid diffuse 75% RCA stenosis. Approach for the elective mid RCA will be from the right common femoral artery due to severe spasm of the right radial artery. No complication in the Asw/Asuw Tactical Air Controller and no symptoms of chest pain and no change in the hemodynamic or cardiac monitors Ellen Reyes MD,FACC,[facility] [place]
[2021-09-07] MEDS: Acetaminophen 325 MG Tablet 650 MG PO ×2 (11:41→20:13)
--- NOTE | 2021-09-07 12:12 | CRPHASE1_ITS ---
Patient Communication PHII Cardiac Rehab Discussed with Patient:: Yes Guide to Cardiac Rehab Given to Patient:: Yes Cardiac Rehab Facility Choice List Given to Patient:: Yes Choice Program [facility] PHII:: Communication Given to CR Investment Broker:: Ellen Reyes Phase II Cardiac Rehab:: Yes Sessions:: 36 sessions - 3 days/wk, 12 weeks Cardiac Rehabilitation Info Cardiac Rehabilitation Program Information: Cardiac Rehabilitation is important for patients like you who are recovering from a heart problem. Cardiac rehabilitation programs are recognized as integral to the continued care of the patient with coronary heart disease. The cardiac rehabilitation program is designed to optimize a patient's physical, psychological, and social functioning. Health hospice care consultant work in cardiac rehabilitation programs and assist you with getting the treatments you need to get stronger and healthier - like exercise, healthy eating habits, and medications. Cardiac rehabilitation has been show to help people with heart problems live longer and have better life enjoyment than people who do not go to cardiac rehabilitation. Please contact the Cardiac Rehabilitation Program at [facility] at in two weeks if you have not heard from them.
--- NOTE | 2021-09-07 12:13 | CRPH1.INSTRU ---
General Education CAD and cardiac anatomy and function:: Patient communicates acknowledgment, Family communicates acknowledgment, Needs reinforcement Explanation of diagnoses and procedures:: Patient communicates acknowledgment, Family communicates acknowledgment, Needs reinforcement Sign/Symptoms of [place]:: Patient communicates acknowledgment, Family communicates acknowledgment, Needs reinforcement Antiplatelet therapy: Patient communicates acknowledgment, Family communicates acknowledgment, Needs reinforcement Proper use of NTG-SL: Patient communicates acknowledgment, Family communicates acknowledgment, Needs reinforcement Emergency procedures and activation of EMS: Patient communicates acknowledgment, Family communicates acknowledgment, Needs reinforcement Compliance of all prescribed medications: Patient communicates acknowledgment, Family communicates acknowledgment, Needs reinforcement Smoking Patient Nicotine/Smoking Risk Factors Are:: Non-smoker Dyslipidemia Patient Dyslipidemia Risk Factors Are:: Total Cholesterol, Triglycerides, HDL, LDL Recommendations Include:: Lipid profile not available, Reviewed NCEP/ATP guidelines, Therapeutic Lifestyle Change dietary guidelines Dyslipidemia Response Code:: Patient communicates acknowledgment, Family communicates acknowledgment, Needs reinforcement Overweight/Obesity Patient Overweight/Obesity Risk Factors Are:: BMI Normal [24-29 & > 65 years old] Recommendations Include:: Weight loss of 5-10%, Reduced calorie diet, Exercise 5-7 times/week Overweight/Obesity:: Patient communicates acknowledgment, Family communicates acknowledgment, Needs reinforcement Hypertension Recommendations Include:: BP <130/80 if diabetic, DASH dietary guidelines, Decrease/maintain normal body weight, Moderation of ETOH Hypertension:: Patient communicates acknowledgment, Family communicates acknowledgment, Needs reinforcement Diabetes Patient Diabetes Risk Factors Are:: Elevated blood sugars Recommendations Include:: Maintain fasting blood sugars 70-110 md/dL, Maintain HgbA1c of 6% or less, Monitor blood sugar as prescribed, Diabetic dietary guidelines, Decrease/maintain body weight Diabetes:: Patient communicates acknowledgment, Family communicates acknowledgment, Family returns demonstration Sedentary Patient Sedentary Risk Factors Are:: Lack of regular exercise Recommendations Include:: Aerobic exercise 5-7 times/week for 20-30 minutes continuously, Benefits of regular exercise, Discussed home walking program, Monitored Outpatient Cardiac Rehab Sedentary Response Code:: Patient communicates acknowledgment, Family communicates acknowledgment, Needs reinforcement
[2021-09-07 12:35] LABS: Bedside Glucose 106 mg/dL (74-106)
[2021-09-07] MEDS: 0.9% Normal Saline 1,000 ML 75 ML IV (12:37)
--- NOTE | 2021-09-07 12:42 | PN.HOSP_ITS ---
Documented by User: Thelma Valenzuela NP-C 09/07/21 13:29 Subjective Subjective Patient seen and examined. Patient lying in bed no distress noted. Objective Data Objective Data Vital Signs: Vital Signs Temp Pulse Resp BP Pulse Ox O2 Del Method 98.0 F 70 17 122/59 H 100 Room Air 09/07/21 08:23 09/07/21 12:30 09/07/21 12:30 09/07/21 12:30 09/07/21 12:30 09/07/21 12:30 Oxygen Delivery Method Room Air Weight: 138 lb 0.15 oz Body Mass Index (BMI) 28.8 Intake & Output: Intake and Output for Last 24 Hours 09/05/21 09/06/21 09/07/21 23:59 23:59 23:59 Intake Total 17.47 / 17.47 362 / 362 Output Total 400 / 400 Balance 17.47 / 17.47 -38 / -38 Lab / Micro Data Result Diagrams: 09/07/21 13:05 09/07/21 13:05 Labs: Laboratory Results - last 24 hr 09/06/21 19:32: PT 12.5, INR 1.0, APTT 27.9 09/06/21 19:32: Troponin I High Sens 6975 H* 09/06/21 22:32: Troponin I High Sens 6654 H* 09/06/21 23:12: POC Glucose 101 09/07/21 01:42: Troponin I High Sens 5718 H* 09/07/21 03:51: POC Glucose 84 09/07/21 04:29: Sodium 142, Potassium 3.6, Chloride 111 H, Carbon Dioxide 25.0, Anion Gap 6, BUN 12, Creatinine 0.73, Estim Creat Clear Calc 42.12, Est GFR (MDRD) Af Amer 98, Est GFR (MDRD) Non-Af 81, BUN/Creatinine Ratio 16.5, Glucose 94, Calcium 8.8, Triglycerides 54, Cholesterol 123, LDL Cholesterol 42, VLDL Cholesterol 11, HDL Cholesterol 70 09/07/21 04:29: WBC 6.2, RBC 3.51 L, Hgb 10.6 L, Hct 32.6 L, MCV 92.9, MCH 30.2, MCHC 32.5, RDW Std Deviation 44.7 H, RDW Coeff of Stacy 13.2, Plt Count 188, MPV 10.3, Immature Gran % (Auto) 0.200, Neut % (Auto) 50.1, Lymph % (Auto) 40.4, [place] % (Auto) 7.5, Eos % (Auto) 1.5, Baso % (Auto) 0.3, Absolute Neuts (auto) 3.1, Absolute Lymphs (auto) 2.49, Nucleated RBC % 0 09/07/21 04:29: APTT 186.5 H* 09/07/21 08:19: POC Glucose 98 09/07/21 12:13: POC Glucose 106 Radiography Diagnostic Testing: Radiology Impression Chest X-Ray 09/06/21 19:45 IMPRESSION: There are bilateral pleural effusions. There are bilateral infiltrates. Electronically Signed: Juventino Almonte MD at 20:03 EDT Reading Location ID and State: [facility] / MD , Service support , Physical Exam Const alert, oriented x3 and no apparent distress HEENT head/scalp atraumatic and moist oral mucous membranes Head and Scalp: normocephalic Eyes conjunctivae normal and no scleral icterus Neck no lymphadenopathy and supple Resp normal respiratory effort and clear to auscultation bilaterally Effort and Inspection: able to speak in complete sentences and symmetric chest movement Cardio regular rate, regular rhythm, S1 normal heart sound and S2 normal heart sound GI normal to inspection, nondistended, normoactive bowel sounds, soft to palpation and non-tender Extremity normal to inspection, full ROM and no clubbing, cyanosis or edema Neuro oriented x3, moves all extremities, no focal motor deficits and no sensory deficits noted Psych affect normal Assessment & Plan Assessment/Plan (1) Non-ST elevation SD (NSTEMI): (2) Chest pain: PLAN: Plan 1. Non-STEMI -Patient underwent cardiac catheterization with Dr. Phillip and Dr. Reyes with successful PCI of the LAD -Patient currently lying in bed, TR band on right wrist. Patient also has Perclose to the right common femoral artery site -Of note patient will need follow-up for elective PCI for 75% RCA stenosis -Patient did have severe spasm of the right radial artery -Cardiology following 2. Hypertension -Continue lisinopril and atenolol -As needed labetalol ordered, patient received 1 dose 09/06/2021 -Vital signs per protocol, currently stable 3. Diabetes mellitus type 2 -Every 4 hours blood sugar checks -Hold metformin -D5 half-normal saline continued, patient not currently eating much 4. Chronic anemia -Trending CBC DVT prophylaxis-patient currently on Brilinta and aspirin This patient was seen by Thelma Valenzuela, ANDRE-C under the supervision of Dr. Wright. 14 minutes spent in clinical coordination of patient's plan of care. Documented by User: Dr. Raghu Wright MD 09/07/21 14:31 Objective Data Lab / Micro Data Result Diagrams: 09/07/21 13:05 09/07/21 13:05 Assessment & Plan Assessment/Plan (1) Non-ST elevation SD (NSTEMI): (2) Chest pain: Charges/Coding Addendum Addendum: Addendum: Dr. Wright I personally examined the patient and reviewed the chart. I agree with the above. 81-year-old female came into the hospital with chest pressure. It lasted for about 30 minutes and she was found to have elevated troponins at her PCPs office. EKG was also abnormal at that time as well. She was started on heparin drip and cardiology was consulted. They took her to the [facility] today where she had a stent placed in the mid LAD. After the procedure she did have a vasovagal episode, at the time she was not complaining of any chest pain but she did become bradycardic she is mostly complaining of right arm pain secondary to a procedural hematoma. We will continue to monitor. Clinical time spent in all aspects of patient care: 20 minutes Visit Charges Inpatient E&M: 40522 Subs Hosp L2
--- NOTE | 2021-09-07 12:49 | EKG12_ITS ---
Test Reason : pci Blood Pressure : / mmHG Vent. Rate : 058 BPM Atrial Rate : 058 BPM P-R Int : 152 ms QRS Dur : 078 ms QT Int : 472 ms P-R-T Axes : 043 -16 125 degrees QTc Int : 463 ms Sinus bradycardia Left ventricular hypertrophy with repolarization abnormality ( R in aVL , [place] product ) T-wave abnormality: Consider myocardial ischemia: lateral Abnormal ECG Confirmed by BELINDA IRIZARRY, ALISON ([id number]), editor department SHELLY DONNELLY ([id number]) on 09/11/2021 10:39:01 AM Referred By: Sebastien Confirmed By:ALISON TREVINO MD
[2021-09-07 13:11] LABS: Bedside Glucose 107 mg/dL (74-106)
--- NOTE | 2021-09-07 13:13 | NURSING ---
Report called to [facility] MECHANICMARY Roca
[2021-09-07 13:16] LABS: Absolute Lymphocyte Count 1.48 X10^3/uL (0.83-4.51); Absolute Neutrophil Count 4.3 X10^3/uL (2.0-7.7); Basophil# 0.02 X10^3/uL; Basophil% 0.3 % (0-1); Eosinophil# 0.04 X10^3/uL; Eosinophils% 0.6 % (0-5); Hematocrit 34.1 % (37-47); Hemoglobin 10.9 g/dL (12.0-15.0); Lymphocyte # 1.48 X10^3/ul (0.83-4.51); Lymphocyte % 23.9 % (19-41); Mean Corpuscular Hgb 30.2 pg (27.0-32.0); Mean Corpuscular Volume 94.5 fL (81-99); Mean Platelet Vol. 10.3 fl (6.2-12.0); Monocyte# 0.31 X10^3/uL; NRBC Flagged by Analyzer 0.5 % (0-5); Neutrophil # 4.32 X10^3/uL (2.7-7.7); Neutrophil % 69.9 % (47-70); Platelet Count 214 K/mm3 (150-450); RBC Distribution Width CV 13.4 % (11.6-14.6); RBC Distribution Width SD 45.9 fl (35.1-43.9); Red Blood Count 3.61 M/mm3 (4.2-5.4); White Blood Count 6.2 K/mm3 (4.4-11.0)
--- NOTE | 2021-09-07 13:24 | NURSING ---
THis RN called [facility] and updated on patients condition and transfer to ICU bed 1.
[2021-09-07 13:29] LABS: BUN 12 mg/dL (7-18); BUN/Creat Ratio 16.5 RATIO (10-20); Creatinine, Serum 0.73 mg/dL (0.55-1.02); EST Glomerular Filtration Rate 81 mL/min (>60); Est Glom Filt Rate - Afr Amer 98 mL/min (>60); Estimated Creatinine Clearance 42.12 ml/min; Glucose 138 mg/dL (74-106)
[2021-09-07 13:30] LABS: Anion Gap 5 (5-15); Calcium,Total 8.6 mg/dL (8.5-10.1); Chloride 109 mmol/L (98-107); Potassium 3.9 mmol/L (3.5-5.1); Sodium Level 139 mmol/L (136-145)
--- NOTE | 2021-09-07 14:31 | CASEMGMT ---
According to the [facility] website, the following are in-network tertiary facilities: [facility], [facility], [facility], [facility], [place], [facility], and . Torres HERNANDEZ CM
[2021-09-07 16:40] LABS: Bedside Glucose 102 mg/dL (74-106)
[2021-09-07] MEDS: Atorvastatin Calcium 40 MG Tablet PO (21:09)
[2021-09-07] MEDS: TICAGRELOR 90 MG TABLET PO (21:09)
[2021-09-07 21:11] LABS: Bedside Glucose 138 mg/dL (74-106)
[2021-09-07] MEDS: Labetalol (Prefilled) 20 MG/4 ML 10 MG IV (22:33)
[2021-09-08] VITALS (20 sets, daily range): BP systolic 124–200; BP diastolic 41–78; PULSE 64–88; RESP 12–22; TEMP 36.6–37.2; O2SAT 98–100
[2021-09-08 01:10] LABS: Bedside Glucose 97 mg/dL (74-106)
[2021-09-08 05:13] LABS: Hematocrit 30.4 % (37-47); Hemoglobin 9.8 g/dL (12.0-15.0); Mean Corp Hgb Conc 32.2 g/dL (32-36); Mean Corpuscular Hgb 30.3 pg (27.0-32.0); Mean Corpuscular Volume 94.1 fL (81-99); Platelet Count 180 K/mm3 (150-450); RBC Distribution Width CV 13.5 % (11.6-14.6); RBC Distribution Width SD 46.5 fl (35.1-43.9); Red Blood Count 3.23 M/mm3 (4.2-5.4); White Blood Count 5.8 K/mm3 (4.4-11.0)
[2021-09-08 05:25] LABS: Bedside Glucose 105 mg/dL (74-106)
[2021-09-08 05:33] LABS: AST(SGOT) 24 U/L (15-37); Alanine Aminotransfer ALT/SGPT 22 U/L (13-56); Albumin, Serum 2.9 g/dL (3.2-5.0); Alkaline Phosphatase 36 U/L (45-117); Anion Gap 5 (5-15); BUN 12 mg/dL (7-18); Calcium,Total 8.3 mg/dL (8.5-10.1); Chloride 110 mmol/L (98-107); EST Glomerular Filtration Rate 84 mL/min (>60); Est Glom Filt Rate - Afr Amer 102 mL/min (>60); Globulin 2.8 g/dL (2.2-4.2); Glucose 104 mg/dL (74-106); Protein, Total 5.7 g/dL (6.4-8.2); Sodium Level 140 mmol/L (136-145)
[2021-09-08] MEDS: Labetalol (Prefilled) 20 MG/4 ML 10 MG IV ×2 (06:15→18:07)
[2021-09-08] MEDS: TICAGRELOR 90 MG TABLET PO ×2 (08:19→22:02)
[2021-09-08] MEDS: Lisinopril 5 MG Tablet PO (08:19)
[2021-09-08] MEDS: Aspirin E.C. 81 MG Tablet PO (08:19)
[2021-09-08] MEDS: Atenolol 50 MG Tablet PO (08:19)
--- NOTE | 2021-09-08 10:00 | EKG12_ITS ---
Test Reason : pci Blood Pressure : / mmHG Vent. Rate : 058 BPM Atrial Rate : 058 BPM P-R Int : 152 ms QRS Dur : 074 ms QT Int : 478 ms P-R-T Axes : 047 -15 121 degrees QTc Int : 469 ms Poor data quality, interpretation may be adversely affected Sinus bradycardia Left ventricular hypertrophy with repolarization abnormality ( R in aVL , [place] product ) T-wave abnormality: Consider myocardial ischemia-lateral Abnormal ECG Confirmed by BELINDA IRIZARRY, ALISON ([id number]), editorial cartoonist SHELLY DONNELLY ([id number]) on 09/11/2021 10:39:37 AM Referred By: Sebastien Confirmed By:ALISON TREVINO MD
--- NOTE | 2021-09-08 10:01 | PCM.PN.CARD ---
Subjective Subjective The patient is currently in the ICU. Her main concerns at this time are discomfort with respect to her right forearm and her right inguinal area. She appears to deny ongoing chest discomfort. There has been no acute respiratory related events. There is been no loss of consciousness. Objective Data Vital Signs: Vital Signs Temp Pulse Resp BP Pulse Ox O2 Del Method 97.8 F 77 15 178/78 H 100 Room Air 09/08/21 08:00 09/08/21 08:00 09/08/21 08:00 09/08/21 08:00 09/08/21 08:00 09/08/21 08:00 Oxygen Delivery Method Room Air Weight: 140 lb 14.006 oz Body Mass Index (BMI) 28.8 Intake & Output: Intake and Output for Last 24 Hours 09/06/21 09/07/21 09/08/21 23:59 23:59 23:59 Intake Total 17.47 / 17.47 482 / 1455.75 1360.00 / 1360.00 Output Total 900 / 900 300 / 300 Balance 17.47 / 17.47 -418 / 555.75 1060.00 / 1060.00 Lab / Micro Data Result Diagrams: 09/08/21 05:00 09/08/21 05:00 Labs: Laboratory Results - last 24 hr 09/07/21 12:13: POC Glucose 106 09/07/21 12:48: POC Glucose 107 H 09/07/21 13:05: WBC 6.2, RBC 3.61 L, Hgb 10.9 L, Hct 34.1 L, MCV 94.5, MCH 30.2, MCHC 32.0, RDW Std Deviation 45.9 H, RDW Coeff of Stacy 13.4, Plt Count 214, MPV 10.3, Immature Gran % (Auto) 0.300, Neut % (Auto) 69.9, Lymph % (Auto) 23.9, [place] % (Auto) 5.0, Eos % (Auto) 0.6, Baso % (Auto) 0.3, Absolute Neuts (auto) 4.3, Absolute Lymphs (auto) 1.48, Nucleated RBC % 0.5 09/07/21 13:05: Sodium 139, Potassium 3.9, Chloride 109 H, Carbon Dioxide 25.0, Anion Gap 5, BUN 12, Creatinine 0.73, Estim Creat Clear Calc 42.12, Est GFR (MDRD) Af Amer 98, Est GFR (MDRD) Non-Af 81, BUN/Creatinine Ratio 16.5, Glucose 138 H, Calcium 8.6, Magnesium 2.0 09/07/21 16:19: POC Glucose 102 09/07/21 20:52: POC Glucose 138 H 09/08/21 00:46: POC Glucose 97 09/08/21 04:44: POC Glucose 105 09/08/21 05:00: WBC 5.8, RBC 3.23 L, Hgb 9.8 L, Hct 30.4 L, MCV 94.1, MCH 30.3, MCHC 32.2, RDW Std Deviation 46.5 H, RDW Coeff of Stacy 13.5, Plt Count 180, MPV 10.0 09/08/21 05:00: Sodium 140, Potassium 4.0, Chloride 110 H, Carbon Dioxide 25.0, Anion Gap 5, BUN 12, Creatinine 0.70, Estim Creat Clear Calc 43.00, Est GFR (MDRD) Af Amer 102, Est GFR (MDRD) Non-Af 84, BUN/Creatinine Ratio 17.0, Glucose 104, Calcium 8.3 L, Total Bilirubin 0.30, AST 24, ALT 22, Alkaline Phosphatase 36 L, Total Protein 5.7 L, Albumin 2.9 L, Globulin 2.8, Albumin/Globulin Ratio 1.0 Cardiology Labs/Tests 09/07/21 13:05: WBC 6.2, RBC 3.61 L, Hgb 10.9 L, Hct 34.1 L, MCV 94.5, MCH 30.2, MCHC 32.0, Plt Count 214, MPV 10.3, Immature Gran % (Auto) 0.300, Neut % (Auto) 69.9, Lymph % (Auto) 23.9, [place] % (Auto) 5.0, Eos % (Auto) 0.6, Baso % (Auto) 0.3, Absolute Neuts (auto) 4.3, Nucleated RBC % 0.5 09/07/21 13:05: Sodium 139, Potassium 3.9, Chloride 109 H, Carbon Dioxide 25.0, Anion Gap 5, BUN 12, Creatinine 0.73, Est GFR (MDRD) Af Amer 98, Est GFR (MDRD) Non-Af 81, BUN/Creatinine Ratio 16.5, Glucose 138 H, Calcium 8.6, Magnesium 2.0 09/08/21 05:00: WBC 5.8, RBC 3.23 L, Hgb 9.8 L, Hct 30.4 L, MCV 94.1, MCH 30.3, MCHC 32.2, Plt Count 180, MPV 10.0 09/08/21 05:00: Sodium 140, Potassium 4.0, Chloride 110 H, Carbon Dioxide 25.0, Anion Gap 5, BUN 12, Creatinine 0.70, Est GFR (MDRD) Af Amer 102, Est GFR (MDRD) Non-Af 84, BUN/Creatinine Ratio 17.0, Glucose 104, Calcium 8.3 L, Total Bilirubin 0.30 Rhythm: Sinus rhythm EKG: Sinus rhythm; consider voltage criteria for LVH; previous T wave change/inversion appears to have returned to baseline ECHO: Pending Cardiac Cath: CONCLUSIONS Normal Left Ventricular End Diastolic Pressure Normal LV size, wall motion,and systolic function LVEF: by LV gram 65 % [place] Multivessel CAD RECOMMENDATIONS Risk factor modification Medical therapy Referred for immediate PCI Consider: stage PCI of the RCA system DESCRIPTION OF? PROCEDURE The patient arrived to the procedure lab. The risks and benefits of the procedure as well as a full description of our services here and current unavailability of surgical backup were fully explained to the patient and/or their significant other prior to the catheterization. The Timeout was completed, verifying the correct patient and procedure. The patient's procedural site was prepped and draped in the usual fashion. Local anesthetic was given subcutaneously to right radial region with Lidocaine 2%. Local anesthetic was given subcutaneously to right groin region with Lidocaine 2%. Using a modified Seldinger technique, arterial access was obtained via the right radial artery, a 6Fr sheath was inserted., arterial access was obtained via the right femoral artery, a 6Fr sheath was inserted.? Right Coronary Artery selective angiography was then performed in multiple views using a 5 Fr. 4.0 [place] catheter. Left Coronary Artery selective angiography was performed in multiple views using a 5 Fr. 4.0 [place] catheter. Left Ventriculography was performed in RIVAS projection using a 5 Fr. [place] catheter. LV to AO pullback pressures were then recorded.Contrast was injected through the sheath and the Right Iliac and Femoral artery were assessed for possible closure device.The radial arterial sheath was pulled and a TR Band was applied for hemostasis. 10cc air inserted.. The femoral arterial sheath was pulled and a Perclose closure device was deployed for hemostasis CORONARY ANGIOGRAPHY DOMINANCE:? Right Dominant LEFT HEART ASSESSMENT Left Ventricular Ejection Fraction: by LV Gram 65 % Normal LV wall motion Normal Left Ventricular End Diastolic Pressure LVEDP: 10 mmHg LEFT MAIN: Angiographically normal LEFT ANTERIOR DESCENDING ARTERY: MID LAD: 99 % / subtotally occluded with the remainder of the vessel filling slowly and late DIAGONAL 1: Proximal - very small caliber side branch with ostial subtotal occlusion CIRCUMFLEX ARTERY: Mild luminal irregularities OM 1: Proximal - Mild luminal irregularities OM 2: Proximal - 25 % Stenosis RIGHT CORONARY ARTERY: MID RCA: diffuse: irregular: 75 % Stenosis DISTAL RCA: Mild luminal irregularities COLLATERAL FLOW: Collateral flow from Right to Left PCI: PCI Cardiac Cath Report PCI Report: 1.? Successful PCI of subtotal 99% mid LAD stenosis with JOSE I flow,?with predilatation followed by placement of a drug-eluting stent 2.5 x 26 mm HILTON/Experiment With reduction of stenosis to 0% and? achievement of?JOSE-3 flow 2.? Successful placement of TR band to right radial artery arteriotomy site 3.? Right common femoral artery angiography followed by placement of Perclose to close the right common femoral artery arteriotomy site Procedure in detail; 81-year-old female who presented with symptoms of chest pain with a clinical diagnosis of non-ST elevation LA Patient underwent cardiac catheterization by primary heat treating bluer Dr. Phillip Findings revealed normal left ventricular end-diastolic pressure Normal LV size wall motion and systolic function with ejection fraction of around 65% Patient has, [place] multivessel CAD I reviewed the cardiac catheterization findings which revealed the following Left main normal angiographically bifurcating into LAD and the left circumflex Left anterior descending artery/LAD mid 99% subtotally occluded with remainder of the vessel filling slowly and late D1 proximal very small caliber size vessel with ostial subtotal occlusion Circumflex artery had mild luminal irregularities with proximal OM1 had mild luminal irregularity and proximal OM2 had around 25% eccentric stenosis Right coronary artery dominant with diffuse irregular 75% stenosis small to moderate size vessel The distal RCA had mild luminal irregularity Collateralization noted from the right RPDA to the distal left anterior descending artery. Consent; Risk and benefit of the procedure explained in detail to the patient she elected to proceed informed consent obtained Interventional equipment and plan; 1.? Patient had severe spasm involving the right radial artery with difficulty of passing the guide catheter using multiple nitroglycerin and verapamil With hematoma noted in the right arm using a pressure band and will proceed with access from the right common femoral artery under fluoroscopic guidance with the placement of 6 [place] sheath with no complication 1.? 6 [place] 3.5 EBU guide catheter 2.? 0.014 run-through extra floppy 180 cm straight guide t wire 3.? 0.035, 260 cm J exchange wire 4.? 2 x 15 mm emerge MR balloon 5.? 2.5 x 26 mm [facility] 6.? Placement of Perclose to close the right common femoral artery arteriotomy site. Medication used in the Web Site Project Manager 1.? Heparin 6000 units was used intravenous 2.? Brilinta 180 mg IV was given 3.? Aspirin 4.? Nitroglycerin and verapamil was used through the right radial artery sheath due to spasm of the radial artery 5.? IC nitroglycerin 200 mcg Procedure in detail; Under fluoroscopic guidance we will proceed with guide catheter advanced ascending aorta cannulated the left main without difficulty, angiographic view obtained and then will proceed with run-through guidewire across the lesion in the LAD and then predilated followed by placement of a drug-eluting stent This is followed by angiographic view of the right common femoral artery and placement of Perclose to close the right common femoral artery arteriotomy site with no complication in the Web Site Project Manager ACT level acceptable. Conclusion recommendations; 1.? Patient to continue on dual antiplatelet therapy with Brilinta and aspirin for 1 year and aspirin indefinitely 2.? Patient is scheduled for phase 1 cardiac rehab program at [facility] 3.? Patient will follow up with the primary heat treating bluer Dr. Phillip for continuation of cardiac care plan 4.? Patient can be scheduled for elective PCI of mid diffuse 75% RCA stenosis. Approach for the elective mid RCA will be from the right common femoral artery due to severe spasm of the right radial artery. No complication in the [employer] Site Project Manager and no symptoms of chest pain and no change in the hemodynamic or cardiac monitors Ellen Reyes MD,FAC,[facility] Physical Exam Const alert, oriented x3 and no apparent distress HEENT normocephalic, head/scalp atraumatic and hearing grossly normal bilaterally Eyes PERRL, EOMs intact bilaterally and conjunctivae normal Neck full ROM, supple and no JVD Carotids: normal carotid upstroke Resp normal respiratory effort and clear to auscultation bilaterally Cardio regular rate, regular rhythm, S1 normal heart sound and S2 normal heart sound GI normal to inspection, nondistended, normoactive bowel sounds Extremity no pedal edema Extremity Narrative: Right forearm: Ecchymoses: Tender to palpation: Radial/ulnar pulses: 2+ with no bruits Right inguinal area: Ecchymoses: Tender to palpation: Femoral arterial pulse: 2+ with no obvious bruits Skin no rashes or lesions noted Psych mental status grossly normal Assessment & Plan Assessment/Plan (1) Non-ST elevation LA (NSTEMI): PLAN: The patient presents with an acute non-ST segment elevation LA. She has undergone evaluation with diagnostic cardiac catheterization. She was found to have angiographically significant CAD especially in the LAD distribution. She subsequently underwent LAD PCI. She will need continued medical management. She will need future outpatient cardiac rehabilitation when she has recovered from her acute event and right upper extremity and right lower extremity areas of ecchymoses/tenderness, etc. (2) Vasovagal episode: PLAN: Following the patient's cardiac catheterization/PCI she was reported in the PCU to appear as if she had a vasovagal mediated event. She was noted to have bradycardia with prolonged pauses/asystole. She was reported as having spontaneous return to sinus rhythm. She was subsequently placed in the ICU overnight to monitor her cardiac rate and rhythm. In the ICU it appears her cardiac rate and rhythm have been stable with no additional vasovagal mediated events or conduction system events/pauses, etc. (3) High cholesterol: PLAN: She will need to continue risk factor evaluation care as deemed appropriate. (4) HTN (hypertension): PLAN: Her family stated that her blood pressure at home is usually been reasonably well controlled. Her pressures are somewhat elevated at this time potentially secondary to discomfort from her right forearm and right inguinal area. Her medicines may need to be adjusted over time depending upon her blood pressure response. (5) Diabetes: PLAN: She will continue evaluation care per internal medicine. Addt'l Comments Overall, the patient appears to be stable from a cardiac standpoint with respect to no ongoing acute symptoms and no ongoing acute dysrhythmia or hemodynamic compromise. She does not seem to be tender from ecchymoses at her cardiac catheterization sites. Dr. Reyes will be asked as well to evaluate her cardiac catheterization sites especially with respect to her right inguinal area femoral arterial site to assist in her ongoing evaluation and care. She will need to continue to be monitored. Her medications will be adjusted accordingly. Over time when she has thought to demonstrate her ability to be released home then she will need continued outpatient follow-up and eventually outpatient cardiac rehabilitation. The above was discussed and viewed with the patient and her family members present. This note was generated using a voice recognition system and there may be incorrect words, spelling or punctuation that were not noted when reviewing the office note prior to saving. Procedure Criteria Type of Procedure Procedure Type: Elective Elective Risks - COVID COVID Risk Discussion: The surgeon/proceduralist and patient have discussed in detail the risk of exposure to and/or potential harm posed by the COVID-19 virus with having a surgery/procedure at this time versus the risk of delaying the surgery/procedure. It is not possible to know either the risk of delaying the surgery or procedure or chance of getting an infection with perfect accuracy, but a joint decision was made between the patient and the surgeon/proceduralist to proceed at this time with the scheduled surgery/procedure as indicated on the consent form.
[2021-09-08] MEDS: Acetaminophen 325 MG Tablet 650 MG PO ×2 (10:47→17:47)
--- NOTE | 2021-09-08 11:03 | PN.HOSP_ITS ---
Documented by User: JANET Martinez 09/08/21 11:08 Subjective Subjective Patient seen and examined. Patient lying in bed no distress noted. Patient reports pain to her right upper arm and right groin secondary to cardiac catheterization yesterday. Pressure dressing in place to right groin Objective Data Objective Data Vital Signs: Vital Signs Temp Pulse Resp BP Pulse Ox O2 Del Method 97.8 F 79 20 H 164/50 H 99 Room Air 09/08/21 08:00 09/08/21 10:00 09/08/21 10:00 09/08/21 10:00 09/08/21 10:00 09/08/21 10:00 Oxygen Delivery Method Room Air Weight: 140 lb 14.006 oz Body Mass Index (BMI) 28.8 Intake & Output: Intake and Output for Last 24 Hours 09/06/21 09/07/21 09/08/21 23:59 23:59 23:59 Intake Total 17.47 / 17.47 482 / 1455.75 1360.00 / 1360.00 Output Total 900 / 900 300 / 300 Balance 17.47 / 17.47 -418 / 555.75 1060.00 / 1060.00 Lab / Micro Data Result Diagrams: 09/08/21 05:00 09/08/21 05:00 Labs: Laboratory Results - last 24 hr 09/07/21 12:13: POC Glucose 106 09/07/21 12:48: POC Glucose 107 H 09/07/21 13:05: WBC 6.2, RBC 3.61 L, Hgb 10.9 L, Hct 34.1 L, MCV 94.5, MCH 30.2, MCHC 32.0, RDW Std Deviation 45.9 H, RDW Coeff of Stacy 13.4, Plt Count 214, MPV 10.3, Immature Gran % (Auto) 0.300, Neut % (Auto) 69.9, Lymph % (Auto) 23.9, [place] % (Auto) 5.0, Eos % (Auto) 0.6, Baso % (Auto) 0.3, Absolute Neuts (auto) 4.3, Absolute Lymphs (auto) 1.48, Nucleated RBC % 0.5 09/07/21 13:05: Sodium 139, Potassium 3.9, Chloride 109 H, Carbon Dioxide 25.0, Anion Gap 5, BUN 12, Creatinine 0.73, Estim Creat Clear Calc 42.12, Est GFR (MDRD) Af Amer 98, Est GFR (MDRD) Non-Af 81, BUN/Creatinine Ratio 16.5, Glucose 138 H, Calcium 8.6, Magnesium 2.0 09/07/21 16:19: POC Glucose 102 09/07/21 20:52: POC Glucose 138 H 09/08/21 00:46: POC Glucose 97 09/08/21 04:44: POC Glucose 105 09/08/21 05:00: WBC 5.8, RBC 3.23 L, Hgb 9.8 L, Hct 30.4 L, MCV 94.1, MCH 30.3, MCHC 32.2, RDW Std Deviation 46.5 H, RDW Coeff of Stacy 13.5, Plt Count 180, MPV 10.0 09/08/21 05:00: Sodium 140, Potassium 4.0, Chloride 110 H, Carbon Dioxide 25.0, Anion Gap 5, BUN 12, Creatinine 0.70, Estim Creat Clear Calc 43.00, Est GFR ( MDRD) Af Amer 102, Est GFR (MDRD) Non-Af 84, BUN/Creatinine Ratio 17.0, Glucose 104, Calcium 8.3 L, Total Bilirubin 0.30, AST 24, ALT 22, Alkaline Phosphatase 36 L, Total Protein 5.7 L, Albumin 2.9 L, Globulin 2.8, Albumin/Globulin Ratio 1.0 Physical Exam Const alert, oriented x3 and no apparent distress HEENT head/scalp atraumatic and moist oral mucous membranes Eyes conjunctivae normal and no scleral icterus Neck no lymphadenopathy and supple Resp normal respiratory effort and clear to auscultation bilaterally Effort and Inspection: able to speak in complete sentences and symmetric chest movement Cardio regular rate, regular rhythm, S1 normal heart sound and S2 normal heart sound GI normal to inspection, nondistended, normoactive bowel sounds, soft to palpation and non-tender Extremity normal to inspection, full ROM and no clubbing, cyanosis or edema Neuro oriented x3, moves all extremities, no focal motor deficits and no sensory deficits noted Psych affect normal Assessment & Plan Assessment/Plan (1) Non-ST elevation [place] (NSTEMI): (2) Chest pain: PLAN: Plan 1. Non-STEMI -PCI to LAD -Patient has hematoma to right upper arm and right groin, pressure dressing to right groin dry and intact -Of note patient will need follow-up for elective PCI for 75% RCA stenosis -Cardiology following -Patient to be evaluated by Dr. Reyes. If patient ok to ambulate and hematoma stays stable will transfer patient to PCU this afternoon. 2. Hypertension -Continue lisinopril and atenolol -As needed labetalol ordered, patient received x2 overnight -Vital signs per protocol, currently stable 3. Diabetes mellitus type 2 -ACH S blood sugar checks with sliding scale insulin -Hold metformin 4. Chronic anemia -Trending CBC DVT prophylaxis-patient currently on Brilinta and aspirin This patient was seen by Thlema Valenzuela NP-C under the supervision of Dr. Wright. 13 minutes spent in clinical coordination of patient's plan of care. Documented by User: Dr. Raghu Wright MD 09/08/21 13:18 Objective Data Lab / Micro Data Result Diagrams: 09/08/21 05:00 09/08/21 05:00 Assessment & Plan Assessment/Plan (1) Non-ST elevation [place] (NSTEMI): (2) Chest pain: Charges/Coding Addendum Addendum: Dr. Wright I personally examined the patient and reviewed the chart. I agree with the above.? 81-year-old female came into the hospital with chest pressure.? It lasted for about 30 minutes and she was found to have elevated troponins at her PCPs office.? EKG was also abnormal at that time as well.? She was started on heparin drip and cardiology was consulted.? They took her to the [facility] today where she had a stent placed in the mid LAD.? After the procedure she did have a vasovagal episode, at the time she was not complaining of any chest pain but she did become bradycardic she is mostly complaining of right arm pain secondary to a procedural hematoma.? We will continue to monitor.? Clinical time spent in all aspects of patient care: 20 minutes 09/08/2021: Doing well today, no chest pain. She does have some pain in her right upper extremity as well as in her right groin from the hematoma yesterday pressure dressing is been on for over 24 hours on her right groin. Cardiology would like her to stay for another 24 hours with the pressure dressing. No issues overnight hemoglobin is stable. Clinical time spent in all aspects of patient care: 15 minutes Visit Charges Inpatient E&M: [id number] [facility] L2
[2021-09-08 12:20] LABS: Bedside Glucose 177 mg/dL (74-106)
[2021-09-08 18:10] LABS: Bedside Glucose 56 mg/dL (74-106)
[2021-09-08] MEDS: Atorvastatin Calcium 40 MG Tablet PO (22:02)
[2021-09-09] VITALS (7 sets, daily range): BP systolic 151–162; BP diastolic 50–62; PULSE 74–79; RESP 16–18; TEMP 36.1–36.7; O2SAT 98–100
--- NOTE | 2021-09-09 06:16 | EKG12_ITS ---
Test Reason : NSTEMI Blood Pressure : / mmHG Vent. Rate : 077 BPM Atrial Rate : 077 BPM P-R Int : 150 ms QRS Dur : 080 ms QT Int : 386 ms P-R-T Axes : 056 -15 119 degrees QTc Int : 436 ms Normal sinus rhythm Moderate voltage criteria for LVH, may be normal variant ( R in aVL , Isiah product ) Marked ST abnormality, possible lateral subendocardial injury Abnormal ECG When compared with ECG of 08-SEP-2021 04:54, MANUAL COMPARISON REQUIRED, DATA IS UNCONFIRMED Confirmed by CECELIA IRIZARRY, NICOLE ([id number]), clinical editor SHELLY DONNELLY ([id number]) on 09/12/2021 9:14:34 AM Referred By: Raghu Wright Confirmed By:NICOLE RAI MD
[2021-09-09 06:55] LABS: Bedside Glucose 91 mg/dL (74-106)
--- NOTE | 2021-09-09 10:00 | EKG12_ITS ---
Test Reason : AM EKG Blood Pressure : / mmHG Vent. Rate : 082 BPM Atrial Rate : 082 BPM P-R Int : 152 ms QRS Dur : 076 ms QT Int : 378 ms P-R-T Axes : 053 -10 129 degrees QTc Int : 441 ms Normal sinus rhythm Left ventricular hypertrophy with repolarization abnormality Inferior infarct , age undetermined , cannot be excluded Abnormal ECG Confirmed by BELINDA IRIZARRY, ALISON ([id number]), food expeditor SHELLY DONNELLY ([id number]) on 09/11/2021 10:39:55 AM Referred By: CHAI Confirmed By:ALISON TREVINO MD
[2021-09-09] MEDS: TICAGRELOR 90 MG TABLET PO (10:26)
[2021-09-09] MEDS: Atenolol 50 MG Tablet PO (10:26)
[2021-09-09] MEDS: Lisinopril 10 MG Tablet PO (10:26)
[2021-09-09] MEDS: Aspirin E.C. 81 MG Tablet PO (10:26)
--- NOTE | 2021-09-09 13:18 | PCM.DC ---
Discharge Instructions Diet Discharge Diet: Low fat / Low cholesterol and 2000 Calorie Control Diet Dressing / Incision Call your doctor if your incision/area has: Continuous Slow Oozing, Sudden Increased Bleeding, Increased Pain/ Swelling, Increased Redness, Foul Smelling Discharge and Swelling at the incision site Call your doctor if you observe: Shortness of breath, Swelling in the ankles, Chest pain and Increased palpitations (irregular heartbeat) Follow Up Care Test Results: Test results from this visit will be discussed in further detail at your follow-up appointment, if applicable. Discharge Plan Admission Admit Date/Time: 09/06/21 20:38 Primary Reason for Your Visit: Chest Pain Attending Provider: Raghu Wright Primary Care Provider: Orlando Diaz Consulting Providers: Bob Arcos ; Dm Phillip Instructions Patient Instructions: Cardiac Catheterization Dc, Cardiac Cath Transradial Discharge Orders/Prescriptions Prescriptions: New atorvastatin 40 mg Tablet 40 mg PO QHS 30 Days Qty: 30 0RF aspirin 81 mg Tablet,Delayed Release (Dr/Ec) 81 mg PO BREAKFAST 30 Days Qty: 30 0RF lisinopril 10 mg Tablet 10 mg PO DAILY 30 Days Qty: 30 0RF Brilinta 90 mg Tablet 90 mg PO BID 30 Days Qty: 60 0RF Continued metformin 500 mg tablet 500 mg PO DAILY Label Comments: TAKE 1 TABLET BY MOUTH EVERY DAY Discontinued lisinopril 5 mg tablet 5 mg PO DAILY Label Comments: TAKE 1 TABLET BY MOUTH EVERY DAY atenolol 50 mg tablet 50 mg PO DAILY Label Comments: TAKE 1 TABLET BY MOUTH EVERY DAY No Action rosuvastatin 5 mg Tablet 5 mg PO DAILY Referrals / Follow Up: Orlando Diaz MD [Primary Care Provider] - Orlando Torres NP, BRICK CHIMNEY SUPERVISOR-C [Nurse Practitioner] - 09/20/21 1:30 pm Disposition Disposition (needs filled in before D/C Order can be placed): Home, Self Care
--- NOTE | 2021-09-09 13:23 | PCM.DC.SUM ---
Documented by User: JANET Martinez 09/09/21 13:27 Providers Date of Admission: 09/06/21 Date of Discharge: 09/09/21 Primary Care Physician: Dr. Orlando Diaz MD Consultations 09/06/21 22:06 Consult: Cardiology Routine Consulting Provider: Dm Phillip Reason for Consult: NSTEMI EMERGENT Consult: No MD Notified: Yes Date Notified: 09/06/21 Time Notified: 21:18 Method of Notification: ED Physician Initiated Reason For Visit: NSTEMI Diagnosis Discharge Diagnosis (1) Non-ST elevation [place] (NSTEMI): Status: Acute Code(s): I21.4 - Non-ST elevation (NSTEMI) myocardial infarction (2) Chest pain: Status: Acute Code(s): R07.9 - Chest pain, unspecified Plan 1. Non-STEMI -PCI to LAD -Patient has hematoma to right upper arm and right groin, pressure dressing to right groin dry and intact -Of note patient will need follow-up for elective PCI for 75% RCA stenosis -Cardiology following -Patient to be evaluated by Dr. Reyes. If patient ok to ambulate and hematoma stays stable will transfer patient to PCU this afternoon. 2. Hypertension -Continue lisinopril and atenolol -As needed labetalol ordered, patient received x2 overnight -Vital signs per protocol, currently stable 3. Diabetes mellitus type 2 -ACH S blood sugar checks with sliding scale insulin -Hold metformin 4. Chronic anemia -Trending CBC DVT prophylaxis-patient currently on Brilinta and aspirin This patient was seen by JANET Martinez under the supervision of Dr. Wright. 13 minutes spent in clinical coordination of patient's plan of care. Medications at Discharge Home Medications metformin 500 mg tablet 500 mg PO DAILY 09/06/21 rosuvastatin 5 mg tablet 5 mg PO DAILY 09/06/21 aspirin 81 mg tablet,delayed release 81 mg PO BREAKFAST 30 days #30 tabs 09/09/21 atorvastatin 40 mg tablet 40 mg PO QHS 30 days #30 tabs 09/09/21 lisinopril 10 mg tablet 10 mg PO DAILY 30 days #30 tabs 09/09/21 ticagrelor 90 mg tablet (Brilinta) 90 mg PO BID 30 days #60 tabs 07/09/22 Hospital Course Operations None Procedures 2-D Echocardiogram and Cardiac catheterization Summary of Care Provided Minutes Spent on Discharge: 35 Hospital Course: Patient is an 81-year-old female who originally presented to the ER with chest pain. Patient was taken for cardiac catheterization initially patient procedure was to be through radial however patient had a arterial spasm and subsequent hematoma in the right upper arm. Patient then underwent a cardiac catheterization through the right groin. There were no complications during the catheterization however once patient returned to the floor patient had a vasovagal bradycardic episode with several long pauses and a hematoma to the right groin. Patient was transferred to the ICU for overnight observation. Patient had no further bradycardic episodes and the hematoma stabilized. Patient was then transferred back to PCU on 09/08/2021 for 1 more day of observation. Patient currently ambulating well hematoma to right upper arm and right groin stable. Patient will be discharged home with instructions to follow-up with cardiology. Patient not sent home on a beta-dashawn at this time secondary to bradycardic episode following cardiac catheterization at the direction of cardiology. Patient may be reevaluated for reinitiation of beta-dashawn at outpatient follow-up Physical Exam Const alert, oriented x3 and no apparent distress HEENT head/scalp atraumatic and moist oral mucous membranes Eyes conjunctivae normal and no scleral icterus Neck no lymphadenopathy and supple Resp normal respiratory effort and clear to auscultation bilaterally Effort and Inspection: able to speak in complete sentences and symmetric chest movement Cardio regular rate, regular rhythm, S1 normal heart sound and S2 normal heart sound GI normal to inspection, nondistended, normoactive bowel sounds, soft to palpation and non-tender Extremity normal to inspection, full ROM and no clubbing, cyanosis or edema Neuro oriented x3, moves all extremities, no focal motor deficits and no sensory deficits noted Psych affect normal Weight / BMI Weight Weight: 138 lb 7.205 oz Body Mass Index (BMI) 28.8 ABG / Lab / Microbiology Data Result Diagrams: 09/08/21 05:00 09/08/21 05:00 Laboratory: Laboratory Results - last 24 hr 09/08/21 17:40: POC Glucose 56 L 09/09/21 06:30: POC Glucose 91 D/C Instructions Discharge Diet: Low fat / Low cholesterol and 2000 Calorie Control Diet Call your doctor if your incision/area has: Continuous Slow Oozing, Sudden Increased Bleeding, Increased Pain/ Swelling, Increased Redness, Foul Smelling Discharge and Swelling at the incision site Call your doctor if you observe: Shortness of breath, Swelling in the ankles, Chest pain and Increased palpitations (irregular heartbeat) Meaningful Use Info Meaningful Use Diagnoses (Choose all that apply): AMI AMI/Post PCI/Angioplasty Aspirin given w/in 24hrs of arrival?: Yes ASA at discharge?: Yes Antiplatelet Therapy at Discharge:: Yes Statins at discharge?: Yes Elan/ARB at discharge?: Yes Beta Dashawn at discharge?: No Reason Beta Dashawn not ordered:: Drug Interaction (Significant bradycardia) Done w/ Acute [place] measure.: Yes Documented LVEF (%): 65 Discharge Plan Admission Admit Date/Time: 09/06/21 20:38 Primary Reason for Your Visit: Chest Pain Attending Provider: Raghu Wright Primary Care Provider: Orlando Diaz Consulting Providers: Bob Arcos ; Dm Phillip Instructions Patient Instructions: Cardiac Catheterization Dc, Cardiac Cath Transradial Discharge Orders/Prescriptions Prescriptions: New atorvastatin 40 mg Tablet 40 mg PO QHS 30 Days Qty: 30 0RF aspirin 81 mg Tablet,Delayed Release (Dr/Ec) 81 mg PO BREAKFAST 30 Days Qty: 30 0RF lisinopril 10 mg Tablet 10 mg PO DAILY 30 Days Qty: 30 0RF Brilinta 90 mg Tablet 90 mg PO BID 30 Days Qty: 60 0RF Continued metformin 500 mg tablet 500 mg PO DAILY Label Comments: TAKE 1 TABLET BY MOUTH EVERY DAY Discontinued lisinopril 5 mg tablet 5 mg PO DAILY Label Comments: TAKE 1 TABLET BY MOUTH EVERY DAY atenolol 50 mg tablet 50 mg PO DAILY Label Comments: TAKE 1 TABLET BY MOUTH EVERY DAY No Action rosuvastatin 5 mg Tablet 5 mg PO DAILY Referrals / Follow Up: Orlando Diaz MD [Primary Care Provider] - Orlando Torres CUSTOM PROTECTION OFFICER, CUSTOM PROTECTION OFFICER-C [Nurse Practitioner] - 09/20/21 1:30 pm Disposition Disposition (needs filled in before D/C Order can be placed): Home, Self Care Documented by User: Dr. Raghu Wright MD 09/09/21 14:36 Providers Date of Admission: 09/06/21 Reason For Visit: NSTEMI Diagnosis Discharge Diagnosis (1) Non-ST elevation [place] (NSTEMI): Status: Acute Code(s): I21.4 - Non-ST elevation (NSTEMI) myocardial infarction (2) Chest pain: Status: Acute Code(s): R07.9 - Chest pain, unspecified Medications at Discharge Home Medications metformin 500 mg tablet 500 mg PO DAILY 09/06/21 rosuvastatin 5 mg tablet 5 mg PO DAILY 09/06/21 aspirin 81 mg tablet,delayed release 81 mg PO BREAKFAST 30 days #30 tabs 09/09/21 atorvastatin 40 mg tablet 40 mg PO QHS 30 days #30 tabs 09/09/21 lisinopril 10 mg tablet 10 mg PO DAILY 30 days #30 tabs 09/09/21 ticagrelor 90 mg tablet (Brilinta) 90 mg PO BID 30 days #60 tabs 09/09/21 ABG / Lab / Microbiology Data Result Diagrams: 09/08/21 05:00 09/08/21 05:00 Discharge Plan Admission Admit Date/Time: 09/06/21 20:38 Primary Reason for Your Visit: Chest Pain Attending Provider: Raghu Wright Primary Care Provider: Orlando Diaz Consulting Providers: Bob Arcos ; Dm Phillip Instructions Patient Instructions: Cardiac Catheterization Dc, Cardiac Cath Transradial Discharge Orders/Prescriptions Prescriptions: New atorvastatin 40 mg Tablet 40 mg PO QHS 30 Days Qty: 30 0RF aspirin 81 mg Tablet,Delayed Release (Dr/Ec) 81 mg PO BREAKFAST 30 Days Qty: 30 0RF lisinopril 10 mg Tablet 10 mg PO DAILY 30 Days Qty: 30 0RF Brilinta 90 mg Tablet 90 mg PO BID 30 Days Qty: 60 0RF Continued metformin 500 mg tablet 500 mg PO DAILY Label Comments: TAKE 1 TABLET BY MOUTH EVERY DAY Discontinued lisinopril 5 mg tablet 5 mg PO DAILY Label Comments: TAKE 1 TABLET BY MOUTH EVERY DAY atenolol 50 mg tablet 50 mg PO DAILY Label Comments: TAKE 1 TABLET BY MOUTH EVERY DAY No Action rosuvastatin 5 mg Tablet 5 mg PO DAILY Referrals / Follow Up: Orlando Diaz MD [Primary Care Provider] - Orlando Torres CUSTOM PROTECTION OFFICER, CUSTOM PROTECTION OFFICER-C [Nurse Practitioner] - 09/20/21 1:30 pm Disposition Disposition (needs filled in before D/C Order can be placed): Home, Self Care Charges/Coding Addendum Addendum: Dr. Wright I personally examined the patient and reviewed the chart. I agree with the above.? 81-year-old female came into the hospital with chest pressure.? It lasted for about 30 minutes and she was found to have elevated troponins at her PCPs office.? EKG was also abnormal at that time as well.? She was started on heparin drip and cardiology was consulted.? They took her to the [facility] today where she had a stent placed in the mid LAD.? After the procedure she did have a vasovagal episode, at the time she was not complaining of any chest pain but she did become bradycardic she is mostly complaining of right arm pain secondary to a procedural hematoma.? We will continue to monitor.? Clinical time spent in all aspects of patient care: 20 minutes 09/08/2021:?Doing well today, no chest pain.? She does have some pain in her right upper extremity as well as in her right groin from the hematoma yesterday pressure dressing is been on for over 24 hours on her right groin.? Cardiology would like her to stay for another 24 hours with the pressure dressing.? No issues overnight hemoglobin is stable.? Clinical time spent in all aspects of patient care: 15 minutes 09/09/2021: Doing well, no chest pain. Pressure dressings are removed and no longer having any swelling from her hematomas. Hemoglobin remained stable. Blood pressure sure was elevated so her lisinopril increased to 10 mg on discharge. Would recommend outpatient follow-up for further adjustments. She did have a vasovagal bradycardic episode so her atenolol was discontinued but if she does continue to remain hypertensive would recommend reinitiating beta-dashawn likely with Coreg at a low dose and titrating up slowly. Discussed plan for discharge she expressed understanding of the risk benefits going home and would like to go home today. Clinical time spent in all aspects of patient care: More than half the 35 minutes spent on discharge was performed by myself Visit Charges Inpatient E&M: [id number] Disch Hosp
[2021-09-09 13:56] LABS: Bedside Glucose 140 mg/dL (74-106)
--- NOTE | 2021-09-09 14:34 | PN.CARD_ITS ---
Subjective Subjective Seen and evaluated at bedside today along with the family member and nursing staff Sitting out in a chair does not have any symptoms reported No symptoms of chest pain, no dizziness or lightheadedness. Objective Data Vital Signs: Vital Signs Temp Pulse Resp BP Pulse Ox O2 Del Method 97.8 F 78 16 162/50 H 100 Room Air 09/09/21 13:45 09/09/21 13:45 09/09/21 13:45 09/09/21 13:45 09/09/21 13:45 09/09/21 13:45 Oxygen Delivery Method Room Air Weight: 138 lb 7.205 oz Body Mass Index (BMI) 28.8 Intake & Output: Intake and Output for Last 24 Hours 09/07/21 09/08/21 09/09/21 23:59 23:59 23:59 Intake Total 482 / 1455.75 1860.00 / 1860.00 Output Total 900 / 900 300 / 300 0 / 0 Balance -418 / 555.75 1560.00 / 1560.00 0 / 0 Lab / Micro Data Result Diagrams: 09/08/21 05:00 09/08/21 05:00 Labs: Laboratory Results - last 24 hr 09/08/21 17:40: POC Glucose 56 L 09/09/21 06:30: POC Glucose 91 09/09/21 13:36: POC Glucose 140 H Cardiology Labs/Tests Rhythm: EKG: ECHO: Stress Test: Cardiac Cath: PCI: CT Surgery: Holter monitor: EPS: PPM: CXR: Chest CT Scan: Physical Exam Narrative Patient alert orientated x3 secured entrance monitor showed underlying normal sinus Cardiovascular exam S1-S2 regular Chest exam is clear to auscultation bilateral Radial and ulnar pulses intact mild bruises noted on the right wrist area Right common femoral artery, right groin had mild bruises. Right common femoral pulse is palpable as well as pedal dorsalis pedis and posterior tibial were palpable. 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 Left main and left circumflex has no significant atherosclerosis Patient had diffuse disease involving the proximal RCA. Overall LV systolic function is preserved Also patient has multiple risk factors with history of diabetes, hypertension, hyperlipidemia. She been stable clinically no further episode of chest pain, no post VT angina Cardiac care plan recommendations; 1. I reviewed all her current medication she will continue the current treatment including dual antiplatelet therapy with Brilinta and low-dose aspirin 2. Beta-roby is not recommended due to the bradycardia and pauses while in hospital Which was mainly due to vasovagal episodes 3. Discussed the current medication and discharge which include aspirin low- dose, Brilinta/ticagrelor 90 mg twice daily, lisinopril 10 mg daily Atorvastatin 40 mg. I reviewed and discussed all the current cardiac medication with the patient, medical team, family and the nursing staff. 4. To follow-up with the primary rail transportation operator, Dr. Phillip to evaluate for elective PCI of the RCA Recommendation would be from the left common femoral artery.
== END 2021-09-09 14:40 | disposition home or self-care (01) | DRG 247 ==
LOC: ED 20:54 → PCU 21:10 → ICU 09-07 13:14 → PCU 09-08 16:28
PROVIDERS: Internal Medicine Interventional Cardiology; Admitting Provider Hospitalist; Emergency Provider Emergency Medicine; PCP Family Medicine; Visit Provider Family Medicine
DX: I21.4 Non-ST elevation (NSTEMI) myocardial infarction (principal); D64.9 Anemia, unspecified; E11.9 Type 2 diabetes mellitus without complications; E78.00 Pure hypercholesterolemia, unspecified; E78.5 Hyperlipidemia, unspecified; I16.0 Hypertensive urgency; I10 Essential (primary) hypertension; F17.200 Nicotine dependence, unspecified, uncomplicated; I25.10 Atherosclerotic heart disease of native coronary artery without angina pectoris; S40.021A Contusion of right upper arm, initial encounter; R07.9 Chest pain, unspecified; Z79.02 Long term (current) use of antithrombotics/antiplatelets; Z79.82 Long term (current) use of aspirin; R55 Syncope and collapse
CPT/HCPCS: 36415; 71045; 80048; 80053; 80061; 82607; 82746; 82962; 83540; 83550; 83735; 84484; 85025; 85027; 85610; 85730; 92928; 93005; 93306; 93458; 99152; 99153; 99284; C1874; J7030; Q9957; Q9967; A4216; C1725; C1760; C1769; C1887; C1894; C8929; C9600; J7799

== ENCOUNTER → 2021-09-06 | Outpatient (CLI) | payer MEDICARE, SELFPAY ==
[2021-09-06 17:39] LABS: Absolute Lymphocyte Count 1.74 X10^3/uL (0.83-4.51); Absolute Neutrophil Count 4.5 X10^3/uL (2.0-7.7); Basophil# 0.02 X10^3/uL; Basophil% 0.3 % (0-1); Eosinophil# 0.02 X10^3/uL; Eosinophils% 0.3 % (0-5); Hemoglobin 11.5 g/dL (12.0-15.0); Lymphocyte # 1.74 X10^3/ul (0.83-4.51); Lymphocyte % 25.9 % (19-41); Mean Corp Hgb Conc 31.9 g/dL (32-36); Mean Corpuscular Hgb 30.2 pg (27.0-32.0); Mean Corpuscular Volume 94.5 fL (81-99); Mean Platelet Vol. 10.4 fl (6.2-12.0); Monocyte# 0.46 X10^3/uL; Monocyte% 6.8 % (0-10); NRBC Flagged by Analyzer 0 % (0-5); Neutrophil # 4.46 X10^3/uL (2.7-7.7); Neutrophil % 66.4 % (47-70); Platelet Count 213 K/mm3 (150-450); RBC Distribution Width CV 13.2 % (11.6-14.6); RBC Distribution Width SD 46.2 fl (35.1-43.9); Red Blood Count 3.81 M/mm3 (4.2-5.4); White Blood Count 6.7 K/mm3 (4.4-11.0)
[2021-09-06 18:10] LABS: ALB/GLOB Ratio 1.1 RATIO (0.9-2.4); AST(SGOT) 40 U/L (15-37); Alanine Aminotransfer ALT/SGPT 25 U/L (13-56); Albumin, Serum 3.7 g/dL (3.2-5.0); Alkaline Phosphatase 48 U/L (45-117); Anion Gap 5 (5-15); BUN 13 mg/dL (7-18); BUN/Creat Ratio 16.9 RATIO (10-20); Calcium,Total 9.2 mg/dL (8.5-10.1); Chloride 110 mmol/L (98-107); Creatinine, Serum 0.77 mg/dL (0.55-1.02); EST Glomerular Filtration Rate 76 mL/min (>60); Est Glom Filt Rate - Afr Amer 92 mL/min (>60); Globulin 3.4 g/dL (2.2-4.2); Glucose 72 mg/dL (74-106); Protein, Total 7.1 g/dL (6.4-8.2); Sodium Level 142 mmol/L (136-145); Troponin-I HS 6929 pg/mL (3.0-54.0)
[2021-09-06 18:28] LABS: Vitamin B12 > 2000 pg/mL (211-911)
[2021-09-06 19:03] LABS: Iron 55 ug/dL (50-170); Iron Binding Capacity,Total 391 ug/dL (250-450); PERCENT IRON SATURATION 14.1 % (15.0-55.0)
== END | disposition home or self-care (01) ==
LOC: MFPLAB 16:45
PROVIDERS: PCP Family Medicine; Visit Provider Family Medicine
DX: R07.9 Chest pain, unspecified (principal)
CPT/HCPCS: 36415; 80053; 82607; 82746; 83540; 83550; 84484; 85025

== ENCOUNTER → 2021-09-12 | Outpatient (CLI) | payer MEDICARE, MEDICAID, SELFPAY ==
--- NOTE | 2021-09-12 13:52 | ADUUE_ITS ---
Reason For Study: S/P Cath, decreased pulse RIGHT Right Radial velocity = 67.3 cm/sec. Right Ulnar velocity = 132.6 cm/sec. Right Brachial velocity = 165.9 cm/sec. No pseudoaneurysm, AV fistula, or occlusion identified. Prelim given to Dr. Phillip. /US Art Duplex Unilat UP Extrem Interpretation Summary Patent arterial flow noted in the right radial and ulnar and brachial arteries. No evidence for thrombosis or pseudoaneurysm or arteriovenous fistula Ordering Physician: Dm Phillip Performed By: Richard Arias, RVT
--- NOTE | 2021-09-12 13:52 | ADUL_ITS ---
Reason For Study: S/P cath, decreased pedal pulses Right Velocities Left Velocities HORTICULTURAL AGENT measures .66 x .74 cm. HORTICULTURAL AGENT measures .63 x .71 cm. HORTICULTURAL AGENT 172.4 cm/s. HORTICULTURAL AGENT 154.5 cm/s. CFV is compressible with normal venous flow CFV is compressible with normal venous flow patterns. patterns. No pseudoaneurysm or AV fistula identified. Prelim to Dr. Phillip. VL/US Art Duplex Unilat Lower Ext Interpretation Summary Normal right common femoral artery 0.66 x 0.74 cm in diameter with triphasic fl ow. Normal right common femoral vein venous compression No evidence for pseudoaneurysm or fistula Normal left common femoral artery 0.63 x 0.74 cm diameter with triphasic flow Normal left common femoral vein venous compression Ordering Physician: Dm Phillip Performed By: Richard Arias RVT
== END | disposition home or self-care (01) ==
PROVIDERS: PCP Family Medicine; Referring Provider Internal Medicine Cardiovascular Disease; Visit Provider Internal Medicine Cardiovascular Disease
DX: R09.89 Other specified symptoms and signs involving the circulatory and respiratory systems (principal); S55.101A Unspecified injury of radial artery at forearm level, right arm, initial encounter; R07.9 Chest pain, unspecified; Z95.5 Presence of coronary angioplasty implant and graft
CPT/HCPCS: 93926; 93931

== ENCOUNTER 2021-10-06 07:25 | Day surgery (SDC) | payer MEDICARE, MEDICAID, SELFPAY ==
[2021-10-05 07:58] VITALS: BMI 28.8
--- NOTE | 2021-10-06 11:21 | ADUUE_ITS ---
Reason For Study: Eval for Pseudoaneurysm LEFT Left Subclavian velocity = 79.0 cm/sec. Left Axillary velocity = 114.9 cm/sec. Left Brachial velocity = 209.4 cm/sec. Left Radial velocity = 139.5 cm/sec. Left Ulnar velocity = 188.3 cm/sec. Negative for pseudoaneurysm or occlusion. Preliminary report given to Dr. Reyes. /US Art Duplex Unilat UP Extrem Interpretation Summary Left subclavian, axillary, brachial, radial, and ulnar arteries appear to be pa tent with normal flow. No evidence for occlusion or pseudoaneurysm identified Ordering Physician: Ellen Reyes Referring Physician: Orlando Diaz Performed By: Noel Chowdhury
--- NOTE | 2021-10-06 12:49 | EKG12_ITS ---
Test Reason : Blood Pressure : / mmHG Vent. Rate : 158 BPM Atrial Rate : 158 BPM P-R Int : 124 ms QRS Dur : 070 ms QT Int : 298 ms P-R-T Axes : 047 -35 090 degrees QTc Int : 483 ms Sinus tachycardia Left axis deviation ST & T wave abnormality, consider lateral ischemia Abnormal ECG When compared with ECG of 06-OCT-2021 14:51, MANUAL COMPARISON REQUIRED, DATA IS UNCONFIRMED Confirmed by CECELIA IRIZARRY, NICOLE ([id number]), assistant editor SHELLY DONNELLY ([id number]) on 10/11/2021 9:45:01 AM Referred By: Confirmed By:NICOLE RAI MD
--- NOTE | 2021-10-06 13:11 | CASEMGMT ---
According to the [facility] website, the following are in-network tertiary facilities: [facility], [place], [facility], [facility], [facility], [facility], and . Torres HERNANDEZ CM
--- NOTE | 2021-10-06 14:16 | PCM.PN.SRG ---
Subjective Subjective Patient moaning complaining of severe left arm pain. I was asked to see her by Dr. Reyes and a written copy will be present in the charting. By report she had access to her left radial artery and then left brachial artery for cardiac intervention. Subsequently complaining of left forearm pain and duskiness to the hand. A left upper extremity duplex exam was performed today suggesting patency of flow of the left subclavian axillary brachial radial and ulnar arteries without evidence for pseudoaneurysm or occlusion. No active leak was identified. The patient however is actively on Brilinta therapy and aspirin therapy. Objective Data Objective Data Vital Signs: Weight: 138 lb Body Mass Index (BMI) 28.8 Physical Exam Narrative Left wrist compressive band syndrome Place Elan wrap in place of the left upper arm significant swelling of the left volar forearm noted with notable tenderness. The patient is obviously in distress. The left radial hand thenar eminence is discolored. The hand still has warmth. Assessment & Plan Assessment/Plan (1) Compartment syndrome: PLAN: I was asked whether I could assist in manages patient's care locally here at [place]. My understanding is an attempt was made to contact as well who was out of town. Unfortunately I do not feel comfortable treating what appears to be a forearm compartment syndrome. I am recommending urgent tertiary referral. Although the duplex exam did not demonstrate active bleeding the forearm is obviously swollen and tender to touch and causing the patient's significant discomfort. I do not feel comfortable pursuing a noninterventional approach locally. I appreciate the opportunity of assisting with her surgical care. Seb Alvares M.D., F.A.C.S.
--- NOTE | 2021-10-06 14:39 | PCIREPORT_ITS ---
PCI Cardiac Cath Report PCI Report: 1. Successful PCI of diffuse 75% stenosis of proximal RCA, with predilatation using 2 x 15 mm balloon Followed by placement of drug-eluting stent 2.75 x 35 mm/HILTON/Orsiro with reduction of stenosis to 0 and maintenance of pre and post JOSE-3 flow 2. Selective left common femoral artery angiography 3. Manual pressure to maintain hemostasis for the left common femoral artery arteriotomy site 4. TR band applied to left radial artery Consent; Risk and benefit of procedure explained detail patient like to proceed informed consent obtained Preprocedure diagnosis 81-year-old patient with history of CAD, has a PCI of the LAD around 2 weeks ago She was brought in for elective PCI of the RCA which had dominant RCA with diffuse proximal RCA long segment Interventional equipment; 1. 6 [place] JR4 guide 2. 0.014 BMW universal straight 190 cm guidewire 3. 2 x 15 mm Emerge balloon 4. 2.75 x 35 mm drug-eluting stent Medication used in the Central Office Associate Patient already on Brilinta and aspirin 2. Patient was given IV heparin 3000 units through the sheath of the left radial artery and she was given a total of 6000 units intravenously Procedure in detail; Under fluoroscopic guidance we will proceed with a 6 [place] JR4 guide advanced, cannulated the right coronary ostium without difficulty, angiographic view obtained, followed by the guidewire which is a BMW guidewire across the lesion in the proximal RCA and placed the wire in the distal part of the RPDA Then will proceed with balloon dilatation using 2 x 50 mm balloon followed by placement of drug-eluting stent and achieve an excellent result with reduction for stenosis and maintenance of JSOE-3 flow. Patient developed swelling and hematoma on the left arm as she has a spasm going on with a Glidewire with likely perforation. Pressure was applied to the left arm using a bandage and irrigant ultrasound performed which showed patency of the left brachial, left radial and left ulnar arteries She has dusky appearing fingers and she had severe pain and swelling. Urgent vascular consult by Dr. Alvares, recommended to transfer the patient for a hand surgeon as she had a compartment syndrome and will require fasciotomy. Hemostasis maintained to the left common femoral artery by manual pressure and she remained stable she does not have any symptoms of chest pain Conclusion recommendations; 1. Patient to continue on dual antiplatelet therapy with aspirin, Brilinta 2. Patient will be transferred urgently to [facility] to be seen by hand surgeon. Evaluate and need for fasciotomy 3. Patient's boiler attendant is Dr. Phillip and will continue to monitor and follow-up clinically as an outpatient once she is stable and discharged from the referral hospital. Ellen Reyes MD,FACC,[facility]
--- NOTE | 2021-10-06 14:51 | EKG12_ITS ---
Test Reason : POST PCI Blood Pressure : / mmHG Vent. Rate : 070 BPM Atrial Rate : 070 BPM P-R Int : 146 ms QRS Dur : 076 ms QT Int : 420 ms P-R-T Axes : 058 -25 120 degrees QTc Int : 453 ms Sinus rhythm with occasional Premature ventricular complexes Left ventricular hypertrophy with repolarization abnormality Abnormal ECG No previous ECGs available Confirmed by CECELIA IRIZARRY, NICOLE ([id number]), department editor SHELLY DONNELLY ([id number]) on 10/11/2021 9:44:39 AM Referred By: DR LANE Confirmed By:NICOLE RAI MD
--- NOTE | 2021-10-06 14:52 | EKG12_ITS ---
Test Reason : Blood Pressure : / mmHG Vent. Rate : 160 BPM Atrial Rate : 160 BPM P-R Int : 126 ms QRS Dur : 068 ms QT Int : 254 ms P-R-T Axes : 032 -37 097 degrees QTc Int : 414 ms Sinus tachycardia Left axis deviation ST & T wave abnormality, consider lateral ischemia Abnormal ECG When compared with ECG of 09-SEP-2021 06:16, Vent. rate has increased BY 83 BPM T wave inversion no longer evident in Anterior leads Confirmed by CECELIA IRIZARRY, NICOLE ([id number]), food expeditor SHELLY DONNELLY ([id number]) on 10/11/2021 9:44:50 AM Referred By: Confirmed By:NICOLE RAI MD
== END 2021-10-06 16:40 | disposition short-term general hospital (02) ==
LOC: CLSP 07:26
PROVIDERS: PCP Family Medicine; Visit Provider Internal Medicine Interventional Cardiology
DX: M79.602 Pain in left arm (principal); T79.A0XA Compartment syndrome, unspecified, initial encounter; Z79.02 Long term (current) use of antithrombotics/antiplatelets; Z79.82 Long term (current) use of aspirin; R09.89 Other specified symptoms and signs involving the circulatory and respiratory systems
CPT/HCPCS: 92928; 93005; 93931; 99152; 99153; C1874; C1894; C1725; C1769; C1773; C1887; C9600; Q9967

== ENCOUNTER → 2021-10-18 | Outpatient (CLI) | payer MEDICARE, MEDICAID, SELFPAY ==
--- NOTE | 2021-10-18 10:53 | ADUUE_ITS ---
Reason For Study: Pain after radial access LEFT Left Brachial velocity = 158 cm/sec. Left Radial velocity = 118 cm/sec. Left Ulnar velocity = 86 cm/sec. Lt Brachial V, Lt Radial V, and Lt Ulnar V are compressible. VL/US Art Duplex Unilat UP Extrem Interpretation Summary Patent left radial, ulnar, and brachial arteries with no evidence of stenosis, pseudoaneurysm, or fistula. No evidence of left upper extremity deep venous thrombosis Ordering Physician: Brennon Esteban Referring Physician: Orlando Diaz Performed By: Ladonna Torres, LUPILLO, RVT
== END | disposition home or self-care (01) ==
PROVIDERS: PCP Family Medicine; Referring Provider Surgery Trauma Surgery; Visit Provider Surgery Trauma Surgery
DX: R09.89 Other specified symptoms and signs involving the circulatory and respiratory systems (principal); S55.102A Unspecified injury of radial artery at forearm level, left arm, initial encounter
CPT/HCPCS: 93931

== ENCOUNTER → 2022-01-12 | Outpatient (CLI) | payer MEDICARE, MEDICAID, SELFPAY ==
--- NOTE | 2022-01-12 07:58 | RAD_ITS ---
STUDY: X-RAY - ESOPHAGUS (BARIUM SWALLOW) WITH FLUOROSCOPY REASON FOR EXAM: Female, 81 years old. Dysphagia TECHNIQUE: 25 view(s) of the esophagus were obtained following swallowing of barium. FLUOROSCOPY TIME (if supplied): (34 seconds) minutes/seconds COMPARISON: None. FINDINGS: There is no demonstrated esophageal foreign body. There is no demonstrated stricture or mucosal abnormality. Normal gastroesophageal junction, without a demonstrated hiatal hernia. The patient ingested a 12 mm tablet of barium without any difficulty. There is atherosclerotic calcification of the aortic arch with tortuosity of the descending aorta. Normal visualized pulmonary parenchyma. There are diffuse degenerative changes of the visualized thoracic spine. RAD/Esophagus Dual Contrast IMPRESSION: Normal plain film x-ray examination (barium swallow) of the esophagus. Electronically Signed: Emmett Barrera MD at 8:56 EST ,
== END | disposition home or self-care (01) ==
PROVIDERS: PCP Family Medicine; Referring Provider Family Medicine; Visit Provider Family Medicine
DX: R13.10 Dysphagia, unspecified (principal)
CPT/HCPCS: 74221

== ENCOUNTER → 2022-01-19 | Outpatient (CLI) | payer MEDICARE, MEDICAID, SELFPAY ==
[2022-01-19 12:21] LABS: Absolute Lymphocyte Count 1.06 X10^3/uL (0.83-4.51); Absolute Neutrophil Count 3.6 X10^3/uL (2.0-7.7); Basophil# 0.02 X10^3/uL; Basophil% 0.4 % (0-1); Eosinophil# 0.06 X10^3/uL; Eosinophils% 1.2 % (0-5); Hematocrit 35.7 % (37-47); Hemoglobin 11.7 g/dL (12.0-15.0); Lymphocyte # 1.06 X10^3/ul (0.83-4.51); Lymphocyte % 20.4 % (19-41); Mean Corp Hgb Conc 32.8 g/dL (32-36); Mean Corpuscular Hgb 31.1 pg (27.0-32.0); Mean Corpuscular Volume 94.9 fL (81-99); Mean Platelet Vol. 9.8 fl (6.2-12.0); Monocyte# 0.39 X10^3/uL; Monocyte% 7.5 % (0-10); NRBC Flagged by Analyzer 0 % (0-5); Neutrophil # 3.64 X10^3/uL (2.7-7.7); Neutrophil % 70.1 % (47-70); Platelet Count 223 K/mm3 (150-450); RBC Distribution Width CV 13.1 % (11.6-14.6); RBC Distribution Width SD 45.3 fl (35.1-43.9); Red Blood Count 3.76 M/mm3 (4.2-5.4); White Blood Count 5.2 K/mm3 (4.4-11.0)
[2022-01-19 12:47] LABS: Hemoglobin A1c 6.2 % (3.8-5.6)
[2022-01-19 12:57] LABS: ALB/GLOB Ratio 1.1 RATIO (0.9-2.4); AST(SGOT) 25 U/L (15-37); Alanine Aminotransfer ALT/SGPT 35 U/L (13-56); Albumin, Serum 3.6 g/dL (3.2-5.0); Alkaline Phosphatase 67 U/L (45-117); Anion Gap 5 (5-15); BUN 15 mg/dL (7-18); BUN/Creat Ratio 16.7 RATIO (10-20); Calcium,Total 9.4 mg/dL (8.5-10.1); Chloride 109 mmol/L (98-107); Cholesterol 122 mg/dL (200); EST Glomerular Filtration Rate 64 mL/min (>60); Est Glom Filt Rate - Afr Amer 77 mL/min (>60); Globulin 3.4 g/dL (2.2-4.2); Glucose 111 mg/dL (74-106); High Density Lipoprotein 62 mg/dL; Sodium Level 139 mmol/L (136-145); Thyroid Stim Hormone (TSH) 1.67 uIU/mL (0.358-3.74); Triglycerides 88 mg/dL; Very Low Density Lipoprotein 18 mg/dL (5-40)
[2022-01-19 13:04] LABS: Microalbumin,Random Urine 41.7 mg/L (NO RANGE EST.); Microalbumin:Creatinine Ratio 13.3 mg/g CRE (<30 mg/g CRE)
[2022-01-19 17:32] LABS: Ferritin 40 ng/mL (8-252); Iron 115 ug/dL (50-170); Iron Binding Capacity,Total 409 ug/dL (250-450); PERCENT IRON SATURATION 28.1 % (15.0-55.0); Vitamin B12 521 pg/mL (211-911)
== END | disposition home or self-care (01) ==
PROVIDERS: PCP Family Medicine; Referring Provider Family Medicine; Visit Provider Family Medicine
DX: D64.9 Anemia, unspecified (principal); E11.9 Type 2 diabetes mellitus without complications
CPT/HCPCS: 36415; 80053; 80061; 82043; 82570; 82607; 82728; 83036; 83540; 83550; 84443; 85025